=== PATIENT | male | born 1965 | race Caucasian/White ===

== ENCOUNTER 2022-10-19 19:01 | Emergency (ER) | payer OTHER, BC, SELFPAY ==
[2022-10-19 19:10] VITALS: BP 189/107; PULSE 73; RESP 24; TEMP 36.9; O2SAT 95; BMI 35.9
--- NOTE | 2022-10-19 19:15 | XR_ITS ---
The [address] [address] Patient Name: LESLIE COLLINS MRN: [id number] date: 1965 Sex: M Assigned Patient Location: ED.MAIN Current Patient Location: ER Accession/Order Number: [id number] Exam Date: 10/19/2022 19:10 Report Date: 10/19/2022 20:34 At the request of: SILVESTRE RODRIGUEZ Procedure: XR hand LT min 3V IMAGES REVIEWED: XR hand LT min 3V COMPARISON: None available. CLINICAL INDICATION: puncture wound FINDINGS/IMPRESSION: Acute intra-articular minimally displaced fracture of the base of the fourth distal phalanx. Otherwise the left hand appears intact. No dislocation. No radiopaque foreign bodies in the soft tissues. Mild-moderate degenerative change of the triscaphe joint, first CMC joint, and scattered interphalangeal joints. Electronically authenticated by: SEBAS CASTILLO Date: 10/19/2022 20:34
[2022-10-19] MEDS: HYDROCODONE/ACETAMINOPHEN 5-325 MG TABLET 1 TAB PO (20:04)
[2022-10-19] MEDS: ONDANSETRON 4 MG RAPDIS TABLET SL (20:04)
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
[2022-10-19] MEDS: LIDOCAINE HCL 1% PF 50 MG/5 ML VIAL 10 ML INJ (21:15)
[2022-10-19] MEDS: DOXYCYCLINE MONOHYDRATE 100 MG CAPSULE PO (21:33)
[2022-10-19 21:50] VITALS: BP 158/89
[2022-10-19 21:54] VITALS: BP 158/89; PULSE 87; RESP 16; O2SAT 97
--- NOTE | 2022-10-19 22:03 | PC.NURSE ---
splint applied to left hand 4th finger, johanne taped with 5th finger
== END 2022-10-19 21:54 | disposition home or self-care (01) ==
PROVIDERS: Emergency Provider Internal Medicine; PCP Family Medicine
DX: S62.634B Displaced fracture of distal phalanx of right ring finger, initial encounter for open fracture (principal); S61.412A Laceration without foreign body of left hand, initial encounter; W20.8XXA Other cause of strike by thrown, projected or falling object, initial encounter
CPT/HCPCS: 12001; 73130; 99283

== ENCOUNTER 2022-11-22 08:58 | Outpatient (OUT) | payer OTHER, BC, SELFPAY ==
--- NOTE | 2022-11-22 09:09 | XR_ITS ---
The [place] [id number] Patient Name: LESLIE COLLINS MRN: [id number] date: 1965 Sex: M Assigned Patient Location: RAD Current Patient Location: RAD Accession/Order Number: [id number] Exam Date: 11/22/2022 09:10 Report Date: 11/22/2022 12:15 At the request of: ELIZABETH Magaña APLING Procedure: XR finger LT min 2V PROCEDURE: XR finger LT min 2V HISTORY: Nondisplaced fracture of the distal phalanx left finger ; follow-up fourth digit distal phalanx fracture COMPARISON: XR hand left 10/19/2022 FINDINGS: BONES:Very minimally displaced fracture of the proximal posterior corner of the fourth digit distal phalanx, with intrahepatic extension. Slight widening of the fracture line suggesting movement or bone resorption as part of early healing process. No appreciable callus formation. SOFT TISSUES:Soft tissue swelling of fourth digit. EFFUSION:None visible. OTHER: Negative. XR/XR finger LT min 2V IMPRESSION: 1. Persistent fracture of fourth distal phalanx. Slight increased widening of the fracture line and lack of callus formation raises concern for movement at fracture site preventing healing. Electronically authenticated by: SILVANA LAKE Date: 11/22/2022 12:15
== END 2022-11-22 08:59 | disposition home or self-care (01) ==
PROVIDERS: PCP Family Medicine; Visit Provider Nurse Practitioner Family
DX: S62.665D Nondisplaced fracture of distal phalanx of left ring finger, subsequent encounter for fracture with routine healing (principal)
CPT/HCPCS: 73140

== ENCOUNTER 2022-12-06 15:01 | Outpatient (OUT) | payer OTHER, BC, SELFPAY ==
[2022-12-06] MEDS: VARICELLA-ZOSTER GE VAC,2 OF 2 0.5 ML VIAL IM (15:08)
== END 2022-12-06 15:02 | disposition home or self-care (01) ==
LOC: VACCLI 15:02
PROVIDERS: PCP Family Medicine; Visit Provider Family Medicine
DX: Z23 Encounter for immunization (principal)
CPT/HCPCS: 90471; 90750

== ENCOUNTER 2022-12-12 14:55 | Outpatient (RCR) | payer OTHER, BC, SELFPAY | END 2023-01-02 16:08 | disposition home or self-care (01) | LOC: OT 14:55 | PROVIDERS: PCP Family Medicine; Visit Provider Nurse Practitioner Family | DX: M79.645 Pain in left finger(s) (principal); M25.442 Effusion, left hand | CPT/HCPCS: 97110; 97165 ==

== ENCOUNTER 2023-02-07 07:38 | Outpatient (OUT) | payer OTHER, BC, SELFPAY ==
[2023-02-07] MEDS: VARICELLA-ZOSTER GE VAC,2 OF 2 0.5 ML VIAL IM (15:46)
== END 2023-02-07 07:39 | disposition home or self-care (01) ==
LOC: VACCLI 07:45
PROVIDERS: PCP Family Medicine; Visit Provider Family Medicine
DX: Z23 Encounter for immunization (principal)
CPT/HCPCS: 90471; 90750

== ENCOUNTER 2024-04-08 08:05 | Outpatient (OUT) | payer OTHER, BC, SELFPAY ==
[2024-04-08 09:38] LABS: Estimated Average Glucose 235 mg/dL; Glycohemoglobin A1C 9.8 % (4.5-6.2)
[2024-04-08 11:08] LABS: Prostate Specific Antigen Scrn 2.54 ng/mL (<=4.00)
== END 2024-04-08 08:06 | disposition home or self-care (01) ==
LOC: LAB 08:06
PROVIDERS: PCP Family Medicine; Visit Provider Family Medicine
DX: Z00.00 Encounter for general adult medical examination without abnormal findings (principal); Z12.5 Encounter for screening for malignant neoplasm of prostate; R73.09 Other abnormal glucose
CPT/HCPCS: 36415; 83036; G0103

== ENCOUNTER 2024-09-28 10:08 | Outpatient (OUT) | payer OTHER, BC, SELFPAY ==
--- OUTSIDE RECORDS SUMMARY | 2024-09-28 10:12 | XMS_ITS | CCD ---
Author Organization [facility] Care Team Providers Care Flexible Nanny Name Role Phone ANNALEE, DR TRUJILLO Admitting Unavailable HOY, DR TRUJILLO Attending Unavailable HOY, DR TRUJILLO Primary Care Unavailable GALLARDO, DR TONO Tejeda Consulting Unavailable HOY, DR TRUJILLO Admitting Unavailable HOY, DR TRUJILLO Attending Unavailable HOY, DR TRUJILLO Primary Care Unavailable HOY, DR TRUJILLO Consulting Unavailable Said, Tracy Consulting Unavailable ZEEMARIANO Consulting Unavailable DAVONY, DR TRUJILLO Primary Care Unavailable HOY, DR TRUJILLO Admitting Unavailable HOY, DR TRUJILLO Attending Unavailable HOY, DR TRUJILLO Consulting Unavailable HOY, DR TRUJILLO Admitting Unavailable HOY, DR TRUJILLO Attending Unavailable HOY, DR TRUJILLO Consulting Unavailable HOY, DR TRUJILLO Primary Care Unavailable HOY, DR TRUJILLO Admitting Unavailable HOY, DR TRUJILLO Attending Unavailable HOY, DR TRUJILLO Consulting Unavailable HOY, DR TRUJILLO Primary Care Unavailable ZIEBER, DR SILVANA Tejeda Consulting Unavailable HOY, DR TRUJILLO Admitting Unavailable HOY, DR TRUJILLO Attending Unavailable HOY, DR TRUJILLO Consulting Unavailable ANNALEE, DR TRUJILLO Primary Care Unavailable MAGGIE HUERTA Admitting Unavailable ANNALEE, DR TRUJILLO Primary Care Unavailable MAGGIE HUERTA Attending Unavailable MAGGIE HUERTA Consulting Unavailable Problems Active Problems Problem Classification Problem Date Documented Date Episodic/Chronic Diabetes mellitus without complication (1 source) Other abnormal glucose; Translations: [OTHER ABNORMAL GLUCOSE] Onset: 03-06-2022 Episodic Disorders of lipid metabolism (2 sources) Hyperlipidemia, unspecified; Translations: [Pure hypercholesterolemia, unspecified] Onset: 11-01-2021 Chronic Diverticulosis and diverticulitis (1 source) Diverticulitis of large intestine without perforation or abscess without bleeding; Translations: [DVTRCLI LG INT NO PERF/ABSC W/O BL] Onset: 11-01-2021 Chronic Osteoarthritis (1 source) Unspecified osteoarthritis, unspecified site; Translations: [UNSPECIFIED OSTEOARTHRITIS UNS SITE] Onset: 11-01-2021 Chronic Other aftercare (1 source) Other alf (current) drug therapy; Translations: [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] Onset: 03-06-2022 Episodic Other screening for suspected conditions (not mental disorders or infectious disease) (1 source) Encounter for screening for malignant neoplasm of prostate; Translations: [ENC SCREEN MALIG NEOPLASM PROSTATE] Onset: 03-06-2022 Episodic Residual codes; unclassified (1 source) Sleep apnea, unspecified; Translations: [SLEEP APNEA UNSPECIFIED] Onset: 11-01-2021 Chronic Unclassified (4 sources) CONTACT W/AND (SUSP) EXPOS COVID-19; Translations: [CONTACT W/AND (SUSP) EXPOS COVID-19] Onset: 05-17-2021 Past or Other Problems Problem Classification Problem Date Documented Da te Episodic/Chronic Abdominal pain (3 sources) Left lower quadrant pain; Translations: [LEFT LOWER QUADRANT PAIN] Onset: 10-26-2021 Episodic Immunizations and screening for infectious disease (4 sources) Encounter for immunization; Translations: [ENCOUNTER FOR IMMUNIZATION] Onset: 03-14-2021 Episodic Joint disorders and dislocations; trauma-related (1 source) Other tear of medial meniscus, current injury, right knee, initial encounter; Translations: [OTH TEAR MED MENSC CUR RT KNEE INIT] Onset: 09-26-2021 Episodic Other and unspecified benign neoplasm (1 source) Personal history of colonic polyps; Translations: [PERSONAL HISTORY OF COLONIC POLYPS] Onset: 11-01-2021 Episodic Sprains and strains (8 sources) Sprain of medial collateral ligament of right knee, initial encounter; Translations: [Sprain of medial collateral ligament of right knee, subsequent encounter] Onset: 09-19-2021 Episodic Unclassified (1 source) CONTACT W/AND (SUSP) EXPOS COVID-19; Translations: [CONTACT W/AND (SUSP) EXPOS COVID-19] Onset: 05-11-2021 Results Test Name Value Interpretation Reference Range Facility OCC BLD IMMUNO SCREENon - OCCULT BLOOD Negative Normal NEGATIVE [facility] Comment on above: Performed By: #### O BSCRN #### [facility] [address] [address] [address] Mitesh Francisco CBC AUTO DIFFon 02-27-2022 BASO # 0.0 103/ul Normal 0.0-0.1 [facility] Comment on above: Performed By: #### C BC #### [facility] [address] [place] [address] Dr. Mitesh Francisco Basophils/100 WBC (Bld) 0.4 % Normal 0.2-2.0 [facility] Comment on above: Performed By: #### C BC #### [facility] [address] [place] [address] Dr. Mitesh Francisco EO # 0.1 103/ul Normal 0.0-0.7 [facility] Comment on above: Performed By: #### C BC #### [facility] [address] [place] [address] Dr. Mitesh Francisco Eosinophils/100 WBC (Bld) 0.8 % Critically low 0.9-7.0 [facility] Comment on above: Performed By: #### C BC #### [facility] [address] [place] [address] Dr. Mitesh Francisco Erythrocyte distribution width (RBC) [Ratio] 12.6 % Normal 11.0-15.0 [facility] Comment on above: Performed By: #### C BC #### [facility] [address] [place] [address] Dr. Mitesh Francisco Hematocrit (Bld) [Volume fraction] 46.5 % Normal 42.0-54.0 [facility] Comment on above: Performed By: #### C BC #### [facility] [address] [place] [address] Dr. Mitesh Francisco Hemoglobin (Bld) [Mass/Vol] 16.1 g/dL Normal 14.0-18.0 [facility] Comment on above: Performed By: #### C BC #### [facility] [address] [place] [address] Dr. Mitesh Francisco IG # 0.02 10e3/ul Normal 0.00-0.03 [facility] Comment on above: Performed By: #### C BC #### [facility] [address] [place] [address] Dr. Mitesh Francisco IG % 0.3 % Normal 0.0-0.5 [facility] Comment on above: Performed By: #### C BC #### [facility] [address] [place] [address] Dr. Mitesh Francisco LYMPH # 1.5 103/ul Normal 1.2-3.8 [facility] Comment on above: Performed By: #### C BC #### [facility] [address] [place] [address] Dr. Mitesh Francisco Lymphocytes/100 WBC (Bld) 19.4 % Critically low 20.5-60.0 [facility] Comment on above: Performed By: #### C BC #### [facility] [address] [place] [address] Dr. Mitesh Francisco MANUAL DIFF REQ NO Normal [facility] Comment on above: Performed By: #### C BC #### [facility] [address] [place] [address] Dr. Mitesh Francisco MCH (RBC) [Entitic mass] 32.6 pg Normal 25.9-34.0 [facility] Comment on above: Performed By: #### C BC #### [facility] [address] [place] [address] Dr. Mitesh Francisco MCHC (RBC) [Mass/Vol] 34.6 g/dL Normal 29.9-35.2 [facility] Comment on above: Performed By: #### C BC #### [facility] [address] [place] [address] Dr. Mitesh Francisco MCV (RBC) [Entitic vol] 94.1 fL Critically high 80.0-94.0 [facility] Comment on above: Performed By: #### C BC #### [facility] [address] [place] [address] Dr. Mitesh Francisco MONO # 0.7 103/ul Normal 0.3-0.8 [facility] Comment on above: Performed By: #### C BC #### [facility] [address] [place] [address] Dr. Mitesh Francisco Monocytes/100 WBC (Bld) 9.1 % Normal 1.7-12.0 [facility] Comment on above: Performed By: #### C BC #### [facility] [address] [place] [address] Dr. Mitesh Francisco NEUT # 5.3 103/ul Normal 1.4-6.5 [facility] Comment on above: Performed By: #### C BC #### [facility] [address] [place] [address] Dr. Mitesh Francisco Neutrophils/100 WBC (Bld) 70.0 % Normal 43.0-75.0 [facility] Comment on above: Performed By: #### C BC #### [facility] [address] [place] [address] Dr. Mitesh Francisco Platelet mean volume (Bld) [Entitic vol] 11.1 fL Normal 9.5-13.5 [facility] Comment on above: Performed By: #### C BC #### [facility] [address] [place] [address] Dr. Mitesh Francisco PLT 142 103/ul Critically low 150-450 [facility] Comment on above: Performed By: #### C BC #### [facility] [address] [place] [address] Dr. Mitesh Francisco RBC 4.94 106/ul Normal 4.70-6.10 [facility] Comment on above: Performed By: #### C BC #### [facility] [address] [place] [address] Dr. Mitesh Francisco WBC 7.6 103/ul Normal 4.0-11.0 [facility] Comment on above: Performed By: #### C BC #### [facility] [address] [place] [address] Dr. Mitesh Francisco FREE T3on 02-27-2022 FREE T3 2.58 pg/mlL Normal 2.18-3.98 [facility] Comment on above: Performed By: #### C BC #### [facility] [address] [place] [address] Dr. Mitesh Francisco GLYCOHEMOGLOBIN A1Con 2021 ADA RECOMMENDATION SEE BELOW Normal [facility] Comment on above: Result Comment: ADA RECOMMENDED LIMIT 4.0 - 6.0 ADA THERAPEUTIC TARGET < 7.0 ACTION SUGGESTED > 7.0 Performed By: #### A 1C #### [facility] [address] [place] [address] Dr. Mitesh Francisco Glucose [Mass/Vol] 123 mg/dL Normal [facility] Comment on above: Performed By: #### A 1C #### [facility] [address] [place] [address] Dr. Mitesh Francisco HbA1c (Bld) [Mass fraction] 5.9 % Normal 4.5-6.2 [facility] Comment on above: Performed By: #### A 1C #### [facility] [address] [place] [address] Dr. Mitesh Francisco LIPID PROFILEon 02-27-2022 CHOL-HDL RATIO NORM SEE BELOW Normal [facility] Comment on above: Result Comment: 3.3 - 4.4 LOW RISK 4.4 - 7.1 AVERAGE RISK 7.1 - 11.0 MODERATE RISK >11.0 HIGH RISK Performed By: #### C BC #### [facility] [address] [place] [address] Dr. Mitesh Francisco Cholesterol [Mass/Vol] 183 mg/dL Normal <=200 [facility] Comment on above: Performed By: #### C BC #### [facility] [address] [address] [address] Mitesh Francisco Cholesterol in HDL [Mass/Vol] 40 mg/dL Normal 40-60 [facility] Comment on above: Performed By: #### C BC #### [facility] [address] [address] [address] Mitesh Francisco Cholesterol in LDL [Mass/Vol] 113.8 mg/dL Normal [facility] Comment on above: Performed By: #### C BC #### [facility] [address] [place] [address] Dr. Mitesh Francisco Cholesterol.total/C holesterol in HDL [Mass ratio] 4.6 {ratio} Normal [facility] Comment on above: Performed By: #### C BC #### [facility] [address] [address] [address] Mitesh Francisco HDL NORMAL > or = 60 mg/dl - LO W CARDIOVASCULAR RISK <40 mg/dl - HIGH CARDIOVASCULAR RISK Normal [facility] Comment on above: Performed By: #### C BC #### [facility] [address] [address] [address] Mitesh Francisco LDL CALC NORMAL SEE BELOW Normal [facility] Comment on above: Result Comment: <100 mg/dl OPTIMAL 100 - 129 mg/dl NEAR OR ABOVE OPTIMAL 130 - 159 mg/dl BORDERLINE HIGH 160 - 189 mg/dl HIGH >190 mg/dl VERY HIGH Performed By: #### C BC #### [facility] [address] [place] [address] Dr. Mitesh Francisco Triglyceride [Mass/Vol] 146 mg/dL Normal <=150 [facility] Comment on above: Performed By: #### C BC #### [facility] [address] [place] [address] Dr. Mitesh Francisco VLDL CALC 29.2 mg/dL Normal [facility] Comment on above: Performed By: #### C BC #### [facility] [address] [place] [address] Dr. Mitesh Francisco PROF 14(COMP METB)on 022 Albumin [Mass/Vol] 3.9 g/dL Normal 3.4-5.0 [facility] Comment on above: Performed By: #### C BC #### [facility] [address] [place] [address] Dr. Mitesh Francisco Albumin/Globulin [Mass ratio] 1.1 {ratio} Normal [facility] Comment on above: Performed By: #### C BC #### [facility] [address] [place] [address] Dr. Mitesh Francisco ALP [Catalytic activity/Vol] 56 U/L Normal 46-116 [facility] Comment on above: Performed By: #### C BC #### [facility] [address] [place] [address] Dr. Mitesh Francisco ALT [Catalytic activity/Vol] 72 U/L Critically high 16-63 [facility] Comment on above: Performed By: #### C BC #### [facility] [address] [place] [address] Dr. Mitesh Francisco Anion gap [Moles/Vol] 8.5 mmol/L Normal [facility] Comment on above: Performed By: #### C BC #### [facility] [address] [address] [address] Mitesh Francisco AST [Catalytic activity/Vol] 22 U/L Normal 15-37 [facility] Comment on above: Performed By: #### C BC #### [facility] [address] [address] [address] Mitesh Francisco Bilirubin [Mass/Vol] 0.7 mg/dL Normal 0.2-1.0 [facility] Comment on above: Performed By: #### C BC #### [facility] [address] [place] [address] Dr. Mitesh Francisco Calcium [Mass/Vol] 9.1 mg/dL Normal 8.5-10.1 [facility] Comment on above: Performed By: #### C BC #### [facility] [address] [place] [address] Dr. Mitesh Francisco Chloride [Moles/Vol] 103 mmol/L Normal 98-107 [facility] Comment on above: Performed By: #### C BC #### [facility] [address] [place] [address] Dr. Mitesh Francisco CO2 [Moles/Vol] 28.8 mmol/L Normal 21.0-32.0 [facility] Comment on above: Performed By: #### C BC #### [facility] [address] [place] [address] Dr. Mitesh Francisco Creatinine [Mass/Vol] 1.05 mg/dL Normal 0.70-1.30 [facility] Comment on above: Performed By: #### C BC #### [facility] [address] [place] [address] Dr. Mitesh Francisco EGFR-AF CONGOLESE >60 Normal >=60 [facility] Comment on above: Performed By: #### C BC #### [facility] [address] [address] [address] Mitesh Francisco EGFR-NON AF CONGOLESE >60 Normal >=60 [facility] Comment on above: Performed By: #### C BC #### [facility] [address] [address] [address] Mitesh Francisco Globulin (S) [Mass/Vol] 3.5 g/dL Normal [facility] Comment on above: Performed By: #### C BC #### [facility] [address] [address] [address] Mitesh Francisco Glucose [Mass/Vol] 115 mg/dL Critically high 74-106 [facility] Comment on above: Performed By: #### C BC #### [facility] [address] [place] [address] Dr. Mitesh Francisco Potassium [Moles/Vol] 4.3 mmol/L Normal 3.5-5.1 [facility] Comment on above: Performed By: #### C BC #### [facility] [address] [place] [address] Dr. Mitesh Francisco Protein [Mass/Vol] 7.4 g/dL Normal 6.4-8.2 [facility] Comment on above: Performed By: #### C BC #### [facility] [address] [place] [address] Dr. Mitesh Francisco Sodium [Moles/Vol] 136 mmol/L Normal 136-145 [facility] Comment on above: Performed By: #### C BC #### [facility] [address] [address] [address] Mitesh Francisco Urea nitrogen [Mass/Vol] 15.0 mg/dL Normal 7.0-18.0 [facility] Comment on above: Performed By: #### C BC #### [facility] [address] [place] [address] Dr. Mitesh Francisco Urea nitrogen/Creatinine [Mass ratio] 14.3 mg/mg Normal [facility] Comment on above: Performed By: #### C BC #### [facility] [address] [place], [place] [address] Dr. Mitesh Francisco T4on 02-27-2022 T4 [Mass/Vol] 4.70 ug/dL Normal 4.50-12.10 [facility] Comment on above: Performed By: #### C BC #### [facility] [address] [place], [place] [address] Dr. Mitesh Francisco TSHon 02-27-2022 TSH 2.979 uIU/mL Normal 0.358-3.740 [facility] Comment on above: Performed By: #### C BC #### [facility] [address] [place], [place] [id number] Dr. Mitesh Francisco Consent Formson 12-21-2021 Consent Forms [id number] TGTIFF [facility] Coding Summaryon 12-20-2021 Coding Summary HTMLBase 64 HlgkdxumVFf1mFq+PGhlYWQ +GE0VXYFiG23qmGPmoE3XG4 vQII5MITYRTAZNCV3NGW9ky WX9KIcrM8HyvnUv JmzowQViBA64QRi6KIC4aIl yBTsmoT0atOQkY1s6MvFeGH 81pT05GEmxDHPsUbL2QcFef jsgbWFy W2cwViAeuRHnXci+PHRhYmx lIHdpZHRoPScxMDAlJyBzdH lsSP2yHo6iSNIgEHMygHjnm HNlOiBj f9hdASUuIHqnHZ6zwQziP7P rcPV9HOZuu2z5By35jEQ+PH ZqKDX3oPayMUori698EtDez 1ygULR6 wLBoEVrrXET5J27nn5P4JNQ vETTqVLO5jYV0mZ5hcTwwae kuK1CiiLHuWvR0EQI0eALpa K9vzBmr iwkqhN1dVay+Z30BUD4IYYB KKN7WLtz5V0NmIlgspDQ+PC 06CXCkIV59aJFpdXAhx5jyy Dq8FtPi UJFsRJJ4gTfvUYmgc0FoRLP zA83crOZwb5K5YXCwdXxmgN OfNiIncQP4xO8sPIkgwzvut 2hvdzsn Ehvgq6dzel93iV91M73oZLs aHRBpCMB1UVBeOMBmqCbuuv 4pvV6xYw2+NQlar8slv8zdl Dm4JxNu ILZyrrItrCigYKI3u1LoXl8 7X3BmdAuba6UwLxo0mp99qM Mgv0G2jAQ6QJevATJhlN3hJ WxlZnQ6 NQOvXmPraI67uNCdTOrqJj8 fpHjhuFcoGA2xESZorzeuJI YxmI9kPDLshOOhjJddOW4eJ TBpbjtm a000SnRkANW1JHXowCVcN1R yyU1kRzGhBHXuEOTkI7CueZ JsMVuwA655XTadEoK4DBYlh tOuH3Rk BGMxjKrzQyG8g4U7Kj6Ue1T fcvuzLZC7KIcvARB3ZcPsWa RyHtL5W1KyLed2LVZwdBfcP W6pC9Dq TWPmzryydgndhIE8PMRqWMN moN76pYWaPJxgAl4fn7V1w3 10CBIcZJHyiP75Kr5veDqgS TBwdCBU iV5gjgijk0ldziolKgUbYAX hTXy5CJl4EJBuaZfvFdUhNT P4KcP2NAV7bYNeyA2zeKusi ofsaE8f Oyc+G65xgP1aMPF4CEY1guo qKVWopxCaHA34LQ61D7PvRw wvdGFibGU+PGRpdiBzdHlsZ V8zZpQv n6yqi5ZmFQcuY7DsZTNtJZx mQdf4VSBuLAV1hZO9wB0wGS ZzGJhtz4K9hEW1J3KfhwHyc r2wc9yp SWSiDBjdU15hhZNoy9L9JUL hcMB4AJUsbOboZjZpyS39Ce c+VTJswWewg3RlYtget1rlc 9jjqFj4 BaEeTBKkttKlvGysKUG5y1A iVl86X49kHIcyNQUnEDMhBS VhKHNvhYjdko7kkO1lSa4+P GNvbCB3 vNS4cL6yBEKmMbI9RNiwM33 8SdFkhOEnWcstl3leu0gtuF j0OgGyANOikvCdyUvmVHW7h 1ZaTq58 H11uBFaiWQVlCPJhUOUlLKF qyYnwkq3hjN9fAq6+PC9jb2 jbxu88qE13cSQ+WCFdLPZ5c WxlPSdw PKWqmE7zNHqvLhH3UXFcLbP crI18aDAyZNeyVq1ocYubkC liJA2wPTNfzbmhe878JrLqx 2xkIDEw cVTfFEbiPET1I70rc5O9PSQ dJZHyGIS3pQW1aS5ybVlzek ogbGVmdDsgdmVydGljYWwtY PbuZ991 IHRvcDsnPlBhdGllbnQgTmF nSTz4S1EbRna0RPBkyUgeRV 0cyBExOObsBu5dhFlzeAzdP Q7vAPAc edejg729UdZdn8wiLSLuuVW wMRdeFVV5H46jq6K2FFKxPK CeAYD4jDK0sX5kzFlxdxxzk GVmdDsg ydVdgQvgIHfqHKxdR357GAL kaIszPwJpvpJsPGQyvAZ0FG 17CX23qWWqh7J4qVI8O7QmV GRpbmct ngtqpQF0GPEhMHUccD86Qd0 slPsuCm1wEPCvMTO7IGWtpQ QaV5WsmO9yCgKdNDFbYKPsM 3RleHQt CKrlM499PJtdSuD2BIBjwbS vE9WcFUSasKnbVpP8j5O6Tn 5EF6E3UI40DK57qJQco0R0u YL5E0Td GJTpbvastzowqMQ7XOFpPQH wgM80Xb9tcQidHp8oGHToIJ K8QWPhpMZeZ0XbjZ1dWuZcV DAwMDAw Y6TzqJNlHPgaD354FDjwVyX 9YGImikKsX7RhKVRciUegFd O4x9N8Cw5RNZq3ZN53QZ08k ICym7A6 nIL0V6VoZFHrogzyyflhiLJ 6LVStVJLajU55Vx1ryRjeQa 0kBPFwNSP3CEQrxVYrX9Syz E2bYzLv RBPdMOLaL8LalLHrCXpjY73 0ACkvTmJ6XKVpyyYmC4HeZC HdhZpsEmO6l0W8Nw5ODIUgQ B67RRB4 nUS7AK22EG14I9IvGvbceIR ibGU+PHRhYmxlIHdpZHRoPS szTDDxBbHdkJzxRZ6oSf8kW GVyLWNv iCntiALdRlWus2ytYTNvTGl jAC3baLqtU7DkcBM8KZTvy4 m4Lw19Q17xF7YpqOF+PGNvb JO1mSW8 hK1sScTyXgU8YGxvB006OxK sgLPeJabfa3qhe4isdJp0Gs G9JPBocxEkxYjbSOG1m9XzT f64C19d IHdpZHRoPSIxNSUiIHZhbGl ciu5dtS1lBh6+AJKshJR7lN B0mA5yMvZrIxJ9KCrlA543M nRvcCIv Qiciu0yaf5rdrYy4BpDnGPU cyyDuhMbmYQH3x8XfEw45M6 AloDmno7ZbLyy3ns15pVFgb 0T7iYO3 J5WfYKKdgrhxmYLpaRdjPL0 cBVTqydveGURlkY7fIBPuZ9 v9UvNgKuV2ERniV1HskkT3I DEwcHQg ROhoLBW7T34tm3D2CTCjPXA jUXD7oMC0zD5dzCagzecxcN VmdDsgdmVydGljYWwtYWxpZ 246IHRv uNfiHYVpcU3oLPDmvYBsbNt hGW2zQDCzkdcaEl9VK1bGXy cJOAVYSOAAHOrDJTBANP02Q Z13aJOb m5G1kLY0E7MnRNOaaxllrjm kjZZ4CWVxBODtlW00vYArLK uaSa6lv3B3a121TYRmCTMij X98Wt4n vXpwGFItcTFYmF8savzlc0i kvcenUoUuIHYjLOz1VKz0MN UvsYlhXdNcGJV4WeD5KYK6j NByzR4n fSyhiytokC5tUwb+MDEvMTU mMVf6EAybvFV+BCZeOJV8fI utAVgeNVBunQ3mMQDsL5d1X iAwLjA1 IEkzO7YfJVVazsikGs28vB9 vYaVrTmP7TXyzL0SmphK6VH OqpLZeIHkuBEX6N50jv1M9X CMwMDAw LEN4kXB9cC3qnYacjjsrqQE mdDsgdmVydGljYWwtYWxpZ2 47MDXwzTjeOoJ2PSwiTQIxV F24BJ26 pGAms7S3jXF4I4InOKSrslb ltjuzfEF8YZYrLTOszC89nO ZuJRauIk0nb7P5v976GGIfU DUwaW47 Cc5uzDkuUERxnLSUqF3xexm vm4vdvtlmEuIzZIKePUx7RS b5XMWxcGjjWsWcZAB5QzE5W PN0xQKw vZ9ctLcixgpsdS2oIjs+TUF MRTwvdGQ+FMNoIQI9fTheME paVDOcsX2jMLKtP7y9YjMoS yX9GWug E0YkMAUoidqrKz06pI0hVeX iIcB4PCdjZ8BkxaR9OTOntN NmJKlcJMU8P43ni1S1TVKeL DAwMDA7 kYE7eQ1nbEptszdnhLUgfWe xbtCbeSkcGZfdUTlcC618CO PsrYuvXeHwkKCTvDBbNAH4E A31GE95 N3UrIxlbeBKytQB+PHRhYmx lIHdpZHRoPScxMDAlJyBzdH ttAQ0eIl3mZHEkBXBkxZxqg HNlOiBj c9bjHLFrJXsqNJ0iwIrfE1K ebJL6CKYwg3r7Dk01F20uL9 JvdXA+VRNmpPF5pET0eP9bX zAlIiB2 QJsdU041YmKsjPRgDjmdv9c cl8dvtKg4PpHdJUChpaLluQ dpFGZ9q3AxOi80W80aZAhhT HRoPSIy CPScFLWkuJgwpn1skX5lRq4 +LGCpuCC7xJW9oB9tSmHgQu O3MDoyR264AnDzbEPeNjldP 63dE6An dXA+ZQBfOhx1STJrcFesHW1 dlIFmEPtnNj7mSVA9JyDpWh ZdHEthU9MxEEVcniuyggdlz FM8RTMm IPSucX71Qy3qiXqrEp7qCWQ oOXW3KGSjmBGaR7DzsO9xFe NnOIPxCAJsE7IipILoEMnuA 246IGxl PiU3INMlhxKhA4EsTJKwkKv kIiM5i9X7Qv8VmXuxrPAfLV 8oSnOtJIl1S4GmKka4TDSez KmsBX5q pVHoWShxIi3qqDlnxAplSC1 zXDJtgamxa258ExQux2kuPO UkcMDxCMxqRAD3P21wg1Q0D CMwMDAw GUI4mZJ0vW0giGltvwvnkBM mdDsgdmVydGljYWwtYWxpZ2 70EKQrmEdwPbJEQde7F5IdI xx1ETOb dRkaEP7dlNIrVIuzZi9okGk etDkaID8gPBVewbysy198Vb Lpw5ccMDPprQKgSOrnHIP4F 67hi6H7 VSWfUOIzAVF6cIG7iC2zsKk nbjogbGVmdDsgdmVydGljYW fnQFkwL722UPTxpYweMk9OV uj0S4Bx Uqb5EOBivMbgLP7miOHnOGu zAb5sdGfmwNxjUH0mAISxud vxx418RyJdq5ydPUNnzPFrP GltZXM7 R00kl2I8EPFjACVlTDW6lHV 1fB4maYdwchnowXLatBgonu RuiVclUSkaJHsoF784YJIhl DsnPlBh eWVyOjwvdGQ+AQ78qg46Y1V cPkfbUsz2IZYqGTV0tVE9tZ 8gYRFmJAgqa4E2yLO2N2Wmv kLviz1k b2x (more content not included)... [facility] Consent Formson 12-19-2021 Consent Forms [id number]#1.00O TGTIFF [facility] Discharge Instructionson Discharge Instructions [id number]#1.00O TGTIFF [facility] Telemetry Stripson 2 Telemetry Strips [id number]#1.00O TGTIFF [facility] Anesthesia Noteon 12-18-2021 Anesthesia Note Patient: Tarsha COLLINS Age: 56 years Sex: MALE : 1965 Associated Diagnoses: None Author: Jose Scott DO Postoperative Information Post Operative Note: Post Anesthesia Care Unit. Anesthetic utilized: General. Physical Examination VS/Measurements VSS. See nursing flowsheet for vital sign measurements. General: No acute distress. Respiratory: Respirations are non-labored. Cardiovascular: Stable hemodynamics.. Neurologic: Alert, Oriented. Review / Management Condition: Stable. Assessment Anesthetic outcome No anesthetic complications noted. Adequate pain relief. Patient either has a diagnosis of or is at risk of [place]. Potential risks and mitigating factors were discussed with the patient who expresses understanding.. Patient advised to follow-up with PCP regarding HTN.. No Complaint of nausea and vomiting. Plan Transfer/ Discharge: Patient can be discharged from PACU when criteria met. Condition stable. [Electronically Signed on: 12/18/2021 17:18 EDT] Jose Scott DO [Verified on: 12/18/2021 17:18 EDT] Jose Scott DO [facility] Anesthesia Note Patient: Tarsha COLLINS Age: 56 years Sex: MALE : 1965 Associated Diagnoses: None Author: Lex Dawkins MD Preoperative Information Anesthesia history: Family history. Patient history: No prior anesthesia problems. Review of Systems Constitutional: Negative. Cardiovascular: No Chest Pain. No SOB. Health Status Allergies: Allergic Reactions (All) No Known Medication Allergies Current medications: Home Medications (4) Active diclofenac sodium 75 mg oral delayed release tablet 75 mg = 1 tab(s), PO, BID Glucosamine Chondroitin oral capsule 1 tab(s), PO, Daily lovastatin 10 mg oral tablet 10 mg = 1 tab(s), PO, Daily Zetia 10 mg oral tablet 10 mg = 1 tab(s), PO, Daily Problem list (past medical history): All Problems Diverticulitis / SNOMED CT 607625272 / Confirmed Hx of gastroesophageal reflux (GERD) / SNOMED CT 2822933132 / Confirmed Apnea, sleep / SNOMED CT 982978157 / Confirmed Histories Family History: No family history items have been selected or recorded. Procedure history: Cataract ([id number]). Comments: 12/05/2021 8:08 Caren Cortez RN right Ocular ([id number]). Comments: 12/05/2021 8:07 Caren Cortez RN repair History of repair of inguinal hernia ([id number]). Comments: 12/05/2021 8:08 Caren Cortez RN right Social History Electronic Cigarette/Vaping Assessment Electronic Cigarette Use: Never. Alcohol Assessment Use: Current. Wine, Liquor, 1-2 times per week Tobacco Assessment Never tobacco user Tobacco Use:. Substance Abuse Assessment Substance use: Never. . Social & Psychosocial Habits Alcohol 12/05/2021 Alcohol Use: Current Type: Liquor, Wine Frequency: 1-2 times per week Substance Abuse 12/05/2021 Substance use: Never Tobacco 12/05/2021 Smoking tobacco use: Never tobacco user Electronic Cigarette/Vaping 12/05/2021 Electronic Cigarette Use: Never . Physical Examination Pain assessment: Self-reports no pain. General: Alert and oriented, No acute distress. Airway: Mallampati classification: III (soft palate, base of uvula visible). Temporomandibular joint mobility: Good. Mouth: Within normal limits. HENT: Normocephalic. Respiratory: Lungs are clear to auscultation. Cardiovascular: Regular rhythm. Neurologic: Alert, Oriented. Review / Management Laboratory Results Plan [place] [employer]#(ASA) physical status classification: Class II. Anesthetic Preoperative Plan Anesthesia: General. . Anesthetic plan, risks, benefits, and alternatives discussed with the patient and/or family. Patient verbalized understanding. Informed consent was given. Anesthetic technique: General anesthesia. [Electronically Signed on: 12/18/2021 15:51 EDT] Lex Dawkins MD [Verified on: 12/18/2021 15:51 EDT] Lex Dawkins MD [facility] Coding Summaryon 12-18-2021 Coding Summary HTMLBase 64 KzzwktsjAQe7mZq+PGhlYWQ +QG6WHXZuZ39usXTtqT9HQ3 xSAS9SQLITNXDBKH6MUJ5rg YS5NWinI7NslgNg MqmkfTWkXL46TSx7PUQ7tUh cUGlrrU7osCIwK5v9NpHhBH 51qY08FPwsAIBdBaT5LeZct jsgbWFy V7mlIiOiyNQuQcc+PHRhYmx lIHdpZHRoPScxMDAlJyBzdH fdFO2sSc0hFJMuIUKdyLjno HNlOiBj m7apDZHbREvxCL8iqJpcR6E gjXR2PYJde4m3Xe55kVN+PH WyIHM8mZnfCTvdn406BnYwq 9ytLKL7 uHYmQJtkPTJ1V79qt9H0JMQ vMUUsRDH3pVY1jX1ioWlbmc yrF2NbzXQrAmW3FAC3sPOgc P2jcGtg laywcP3tBci+G07PGV2TCIX OYR8ZNzw2F4DxXbgajBL+PC 97PNTfMV42uCTyhUChm8uek Ab6SpIv BXFqSAT3gGinLLmmb1IzDJK cC00ayRZhs3J3IVBgaBoooQ AqJsKezSC5zP1nUKvckdhzp 2hvdzsn Baeyi0sybj94iD30X64iHYr qFSLhSHE9AHFtNTCmkDjycu 4caS0vIz0+YFgrl7lqy2ztd Jh9BwXw HRWgobYqyAyhQOM3i0OsCz9 4V7HsiGkvy7KfRou0gw06oX Qmb5J4uGU1QBixXRQsrV3sO WxlZnQ6 DPPnRkEhzP15tIVzCSxqFw6 crSnvxZzxZB3kCNCicvtoNM ZczV2mEQZrkGBmnMcyDM9hY TBpbjtm b322VcEmGPG3YXYelALyB4A mgP2aVlNfQOFcAUBwP8FzmH VyLPuwG644QZacBbA3USVuk zKiJ6Kn NTIxlLmvBfK3d1I8Cx8Zv3L gzmdlNVM4KJxgOVM9XpU4Lw IjNpE6Q9NcFhp6SUPhsQbbH W7uC4Ys BNPfcqtythjmcCH6UJNeAOM fnC18sFIaTZmbMg2uf7J0l6 96XFZdXYKiwG92Km4rnNjuE TBwdCBU sU1tiavur0jnzyjgUkIuFBR rGZh9BWw0XVHxwCckJpBxXU X8RpQ6SOZ7zLTydW0mpYryc ekvaW1d Oyc+H00dmX2fUPZ1WPG6dxr gSGSpihHvXA89GI06L2AiUq wvdGFibGU+PGRpdiBzdHlsZ W8vJySb w5ctk9EcJAneJ0LiOUJtYYt kOhr5QFUmVVD3lAI5cR7eOV OoNShtm4Y4mKI4P2ZwygBzb g1hj2bo GKHwCVbxD93kxAPwa2S1BIC yeGI7LLGgzRinEyWcoJ50Vq c+LKIduGewb8BtKbcif5cuo 6amuLc7 CgRrQONrnbWaqXliNDX5u1S sEz76O61lRQoeQLYmZIXePJ GgAXCmoHbdnz2bvM7fHm0+P GNvbCB3 nBW3eT0nQCHhVkO3GShtI84 1BbPdmDUkWlcwc7jkk6dtiG u0FaSiGWJkesQdwTrwEWY4s 6NhQm63 I74bQShvFVXtYQReIXZhFKZ kcZqvan5anJ5sQr0+PC9jb2 twhy64zD62oQV+VOExZUJ4a WxlPSdw MLMuyM0aWBdbHtW7VHFqCnV jtX15qIReUQvnLn3vcWzxqF gfKL9lWQKxmzpfs118UiCaz 2xkIDEw sTXbSAhmNUD3W73ey9X4MXA gNWWkZLU1aHP4kV8xzFrcbq ogbGVmdDsgdmVydGljYWwtY SsfC895 IHRvcDsnPlBhdGllbnQgTmF vZRw9T6AyVdv0HNSbpTtiNU 8eaCYwQMhgPh6mpVljwMonR E3oJNAu fszvg262HpKaj3tpQZRhqGR vEZsrWDH9M16gy0M5JBTnFI KpMGX8nQL5mV6wzPjcodbor GVmdDsg clIawMfwPNsjDVpmL097YZT awGzyFpBwicShYAQtgMT4XO 02WO09oHAjd8X7qCJ9D9LxV GRpbmct qztjvHT1VJQwLIZjrH17Db0 ulRflTv5eUJIqCXZ3FPSgxO RkJ0RgdF7wPuBaYGNnXVDwP 3RleHQt CVriX964PXfhUyR5KCTqvxL jY0GtERXqeBccEwN7y5D2Dq 1WS5D7EC95BC70hXGyf0F1o SJ1O3Lt ZNLvegehzkbetPH2FGKkLKU sxF55Gn5lyTgbIs3eCYXxKN L8ZCVmoUPiW0VlgE2dEjOyF DAwMDAw Y8RdtDFdYEfiM125HMqmOaM 1OSYzxhRxE2YiMBDcsBgnGx L3n0O9Ls9XXWl0HZ08KB13i WIqe4B3 vTR9Y5IwWWPxjgihniwrtQD 7TVXzOAWrwZ48Il7okXszRq 0aZUJrVCF8CTOinCFjK0Hgt B3wWxJm DLKqZGUhV0OrvLCmSYlmA18 7ZOcpFcY9NRNmdfWnJ3QlSF AoaWynOgH6m0M2Yt8SFRHwO J18UWU7 fOA5KG98CV65W7UrHwdqvHA ibGU+PHRhYmxlIHdpZHRoPS tpALUqSkNhyDxbGU8mTi1rY GVyLWNv jUhtiHRtFpGwm9rzYXVrALh bPB0quUisU6AjsYF7IHLai2 g4Mr28S46tZ7DbqWO+PGNvb PV1tZB4 kB7yAvAvUdQ4TEqoT890FcZ hdLSfFqnak3xzt0dqpOf6Ku Z0GSYuamFntOktJAM0f1AoU f48K49s IHdpZHRoPSIxNSUiIHZhbGl ivm9ibN8uPf8+YWExaPV2iI A0tZ7gKtGaWfT7WNxdN779Y nRvcCIv Onwrw0qzo4cgfPf0VfHsUIP zuoUrvSbjFEI7h5NjXr32I7 RkaRtzw7RwWco4ts53yGDdp 8C5rTX6 U5EjLLXzgldjvYIjnZkmEN6 tMATnyoozMVDolB0cZNNrK9 b5QnHhTuW4MLwtU7KbosL3D DEwcHQg EEooVEM0F50ri9F8XIEzKON nJVT2qBW8nF7kiThtnxxshZ VmdDsgdmVydGljYWwtYWxpZ 246IHRv nIjjYGYbqT7yWDNjyGAddVk tTE7iIJBswfraBj9VZ5dLSz eQNOZRHEXGUGtUPCDFSE72D I84pIFa b5A9vKS9S5OgCISljmtywel dzTL3BBVfNMBssM68zRVwFP fiUi6km2Q6x921YARyKEXfi M79Om0x kJmyVJRfkVFLeJ3aotrcb8r wuotoHsLjMIOeXOk6VHo2DQ LgeIqsOyXtJCT4YgG3WMB4b JAelN3a lXhgemgdoC7pMzu+MDEvMTU zDJu0XFlqsOK+OBReNEI5zC fdJEsdYPOieB4oRGTlJ5e5W iAwLjA1 UKqqL7DqPZUosqxfDw79bQ0 nDqEuNeU5NJypI2XqknF0DP FbcCSnEZncWEZ8H17ea2M8G CMwMDAw NTR6qQY3vG9orCwuqqigpPH mdDsgdmVydGljYWwtYWxpZ2 23JGFpcMgyLnM7BGphKJBvC K56HK51 pCScg9P5dKK7P9EyABQmrvl fgaruxLR3RLNzNGMnmS40mI TlHFegUt4to3D6d834QVPzD DUwaW47 Jk1qpOspHCXitETJmF0vmwc vp1ekadppXlDdVZNxNTo3MO c7IZNxpQrhNvLuOSJ4OxV8H WK2eHVy pN8zlIyucyzptT2xAdb+TUF MRTwvdGQ+GSHkGSN2nGaeDD qbMCHecW5xIJGfF1j5WzKwP uD0DXmu S4OeSBHgkuqgKr62pO7wQlO zDvL2FPivZ2VmbkO7NKOygO HyOTgbCNB8C42rh7N7LYZcB DAwMDA7 eOA9mK6ymAzqjmrxuTWsuGj rfpEfiAbsWXdjSEuiJ714LQ BchObeOz5VIB58WH89C6CtW jwvdGFi bGU+PHRhYmxlIHdpZHRoPSc fLQClHpDdoImcAB9hJp0zHI XmKJPsjJnhhDKqIyJrc3oaR XBzZTsg NJ1tcTntZ5GjbKY7KWOtz9u 8Ze76Y79xT3ZpzQG+PGNvbC E8dXI6zV8nYxFjBhD8NYgwA 249InRv yZOlMvhvj8dww1womAv3LwQ xHODhkeInrGfrBRS3r3HwAx 17B44sBOnaVOUpIGOtSSSgV HZhbGln qx1dlG0pAi5+SLWcmSP5dBI 0lF0lMhKqXiO3SUvvO746Ng EiqOZjEqgbN36pU3OjiAL+P HRyPjx0 FRZdxPglHU6ihLMuNEbxIl5 hOJU8MqJoVsQkOXncJ5BaWT GuihldlmjzsSS1WRJhVMEzu V57Js2x xUsgWj4gUGBkMEI8JWEneAQ dY9RsdE7zCgSbQWOuICItI9 ZwvLCoQJlhV170ZRkpEbW7F HZlcnRp N1LmPQEiyVdqYtY7n5G8Ob9 RoJoqbZQkSA5rZzUjCGy0U0 TkPec0AHDupAkwSL1grVZqV SlaNw4j xJkztRupVM0kNYMxpjdym04 8QjYon4ydDBKbjXXkMXhxCK G1Q19jq0K1LOAmJJFhPBV8h EY2nR3x bGlnbjogbGVmdDsgdmVydGl zJRsmPUzxD709HPLknBdpVe XFMvc8P5ZnKil1TWRvcXhgO U7niYYx MGghId8fjJtuoXhyAL4vSPP ltjnai386JtJjf3akPJVtoX TjFUwzRIM7U81xb6O0YJAnL DAwMDA7 bVW8mL3hsEyfkaxafJLykSa dblNqeUyiEEqaDBxwA395ZJ FzpGacVc8ZCce7R5HkVnn1J CBzdHls CR3poJVcFVgfMy5wtDjxiMc iOM3tRMDljaqsr536CyXsr1 srSXLawMHvYLjvHKY1M47jq 5Y5ZMNh WUGfJAU4iEW8aY0ivBmroti gbGVmdDsgdmVydGljYWwtYW msP245VAGgtVcqKcInmNQhK jwvdGQ+ KI46fu69R9TtDwlrHse8EIS cWHY1fEE8yY4sFIQuHIoqp4 V0dBX2A7KwifQtjv0zn5zgF XBzZTog Y29 (more content not included)... Normal [facility] Inpatient Patient Summaryon 12-18-2021 Inpatient Patient Summary [address] [address] Patient Discharge Instructions Name: LESLIE COLLINS : 1965 Patient Address: [address] [place] [id number] Primary Care Provider: Name: RONNIE MANTILLA After you are discharged if you find you have any questions, please, call [phone] ext [phone] to speak to a nurse. Discharge Diagnosis: Tear of meniscus of right knee as current injury Prescription Information: If you have been given a prescription for narcotics, seek immediate medical attention if you have any difficulty breathing or any sudden status changes such as confusion and sleepiness. If you or anyone you know is experiencing suicidal thoughts, mental health, alcohol and/or drug addiction problems; contact the [facility] 03/12 Crisis Hotline -Text 4HLFP lv 932676. If you received any narcotics, sedation, or any other medication that causes drowsiness for the next 24 hours, unless otherwise directed: ? Do not drive a car. ? Do not operate machinery such as power tools, lawn mowers, drills, sewing machines, or stoves ? Avoid alcoholic beverages and drugs for allergies, nerves, or sleep ? Do not make important personal or business decisions or sign any legal documents [facility] would like to thank you for allowing us to assist you with your healthcare needs. The following includes patient education materials and information regarding your injury/illness. KARINACAROLINE MAYN OKSANA has been given the following list of follow-up instructions, prescriptions, and patient education materials: Follow-up Instructions With: Address: When: ELIZABETH DURAN [address] [place] [address], [address] [place], [place] [id number] Business (1) 12/27/2021 8:30 AM With: Address: When: RONNIE MANTILLA [address] [place] [address] [place] [id number] Business (1) Medications During the course of your visit, your medication list was updated with the most current information. The details of those changes are reflected below: Medications to Continue That Have Not Changed Other Medications ascorbic acid/chondroitin/glucos a/rudolph (Glucosamine Chondroitin oral capsule) 1 tab(s) Oral every day. diclofenac (diclofenac sodium 75 mg oral delayed release tablet) 1 tab(s) Oral 2 times a day. ezetimibe (Zetia 10 mg oral tablet) 1 tab(s) Oral every day. lovastatin (lovastatin 10 mg oral tablet) 1 tab(s) Oral every day. It is important to always keep an active list of medications available so that you can share with other providers and manage your medications appropriately. As an additional courtesy, we are also providing you with your final active medications list that you can keep with you. ascorbic acid/chondroitin/glucos a/rudolph (Glucosamine Chondroitin oral capsule) 1 tab(s) Oral every day. diclofenac (diclofenac sodium 75 mg oral delayed release tablet) 1 tab(s) Oral 2 times a day. ezetimibe (Zetia 10 mg oral tablet) 1 tab(s) Oral every day. lovastatin (lovastatin 10 mg oral tablet) 1 tab(s) Oral every day. Take only the medications listed above. Contact your doctor prior to taking any medications not on this list. Diet & Activity Patient Activity Level: As Tolerated Patient Diet: Regular Patient Activity Restrictions: Comment: Patient education materials, if any, will display below DR. ALBARADO POST OPERATIVE KNEE ARTHROSCOPY INSTRUCTIONS SURGEONS WRITTEN INSTRUTCTIONS: -If you have been given a cryo cuff after surgery you should use it about 20 min/hour for the first 24 hours. After that it is optional. TIP: Many patients prefer to use it a little longer because it helps to reduce the pain. -You should take it easy for the first 3 days following surgery. You should be a ?couch potato? and get up to eat and go to the bathroom. After the first 3 days, you may gradually increase your activities as tolerated. -Change your dressing in 1 day. If the wounds are clean and dry you can cover them with a band-aid. -You may shower in 1 day. DO NOT submerge the wound under water as in a bathtub, swimming pool, or hot tub. -You may bear weight as tolerated. Using crutches or assisted devices are not required. -You should elevate your extremity -If you have any questions or concerns, please call the office at [phone] Viruses or Bacteria What?s got you sick? Antibiotics only treat bacterial infections. Viral illnesses cannot be treated with antibiotics. When an antibiotic is not prescribed, ask your healthcare professional for tips on how to relieve symptoms and feel better. Usual Cause Illness Viruses Bacteria Antibiotic Needed Cold/Runny Nose NO Bronchitis/Chest Cold (in otherwise healthy children and adults) NO Whooping Cough Yes Flu NO Strep Throat Yes Sore Throat (except strep) NO Fluid in the middle ear (otitis media with effusion) NO Urinary (more content not included)... Normal [facility] MAGR Intraoperative Recordon 12-18-2021 MAGR Intraoperative Record MAGR Intra-Op Record Summary Primary Physician: Oksana Tan DO Finalized Date/Time: 12/18/21 21:11:31 Pt. Name: LESLIE COLLINS/Sex: 1965 MALE Med Rec #: [id number] Physician: Oksana Tan DO Financial #: [id number] Pt. Type: D Room/Bed: / Admit/Disch: 12/18/21 12:18:00 - 12/18/21 17:20:00 Institution: Case Times MAGR Entry 1 Patient In Room Time 12/18/21 15:13:00 Out Room Time 12/18/21 15:58:00 Anesthesia Start Time 12/18/21 15:13:00 Stop Time 12/18/21 15:59:00 Surgery Start Time 12/18/21 15:38:00 Stop Time 12/18/21 15:46:00 Last Modified By: Tracy Vaca RN 12/18/21 16:09:46 Case Attendance MAGR Entry 1 Entry 2 Entry 3 Case Attendee Oksana Tan William MD Long, Barbara RN Andrew DO Role Performed Surgeon - Primary Anesthesiologist of Disability Examiner Record Time In 12/18/21 15:13:00 12/18/21 15:13:00 12/18/21 15:13:00 Time Out 12/18/21 15:46:00 12/18/21 15:58:00 12/18/21 15:58:00 Procedure Arthroscopy Knee(Right) Arthroscopy Knee(Right) Arthroscopy Knee(Right) Last Modified By: Tracy Vaca RN, Barbara RN Long, Barbara RN 12/18/21 16:09:47 12/18/21 16:09:47 12/18/21 16:09:47 Entry 4 Entry 5 Case Attendee Miriam You Jennifer RNFA RN RISK MGR Role Performed Scrub Personnel Disability Examiner Time In 12/18/21 15:13:00 12/18/21 15:13:00 Time Out 12/18/21 15:58:00 12/18/21 15:58:00 Procedure Arthroscopy Knee(Right) Arthroscopy Knee(Right) Last Modified By: Tracy Vaca RN, Barbara RN 12/18/21 16:09:47 12/18/21 16:09:47 Surgical Procedures MAGR Pre-Care Text: A.20 Verifies operative procedure, surgical site, and laterality Im.150 Develops individualized plan of care Entry 1 Procedure Arthroscopy Knee Primary Procedure Yes Primary Surgeon Oksana Tan DO Surgeon Comment RIGHT KNEE SCOPE Start 12/18/21 15:38:00 Stop 12/18/21 15:46:00 Anesthesia Type General Surgical Service Orthopedics Wound Class Clean Technique Details Closure Technique Primary Entire procedure No was performed via laparoscope or robotic assistance Last Modified By: Tracy Vaca RN 12/18/21 16:09:49 Post-Care Text: O.730 The patient's care is consistent with the individualized perioperative plan of care General Case Data MAGR Pre-Care Text: A.350.1 Classifies surgical wound Entry 1 Case Information OR MAGR OR 01 Case Level Level 4 Wound Class Clean Specialty Orthopedics ASA Class 2 Diagnosis Preop Diagnosis INTERNAL DERANGEMENT Postop Same As Preop Yes RIGHT KNEE Postop Diagnosis INTERNAL DERANGEMENT RIGHT KNEE Blunt or No Is the procedure No penetrating injury considered occured prior to Emergent/Urgent? the start of the procedure: Last Modified By: Tracy Vaca RN 12/18/21 15:38:24 Post-Care Text: O.760 Patient receives consistent and comparable care regardless of the setting Time Out MAGR Entry 1 Time out date/time 12/18/21 15:37:00 All team members Yes have introduced themselves by name and role Surgeon, Yes Surgeon reviews Yes anesthesia, nurse critical or confirm patient, unexpected steps, site, procedure operative duration, anticipated blood loss Anesthesia team No Nursing team Yes reviews any reviews sterility patient-specific (including concerns indicator results) and equipment issues/concerns Antibiotic Antibiotic Yes Administration Time 15:10 prophylaxis given within the last 60 minutes Last Modified By: Tracy Vaca RN 12/18/21 15:38:18 Patient Positioning MAGR Pre-Care Text: A.280 Identifies baseline musculoskeletal status Im.40 Positions the patient Im.80 Applies safety devices Entry 1 Procedure Arthroscopy Knee(Right) Body Position Supine Left Arm Position Extended on padded arm Right Arm Position Extended on padded arm board board Left Leg Position Other/see comments Right Leg Position Other/see comments Feet Uncrossed? Yes Press Points Checked Yes Additional Operative leg in Positioning Device Safety Strap, Arm Information arthroscopic knee Boards, Leg Arellano arellano with padded insert right, non operative leg supported with a thick pad dangling at the end of the bed left. Outcome Met (O.80) Yes Last Modified By: Tracy Vaca RN 12/18/21 15:39:49 Post-Care Text: E.290 Evaluates musculoskeletal status O.80 Patient is free from signs and symptoms of injury related to positioning Skin Prep MAGR Pre-Care Text: A.30 Verifies allergies Im.270 Performs skin preparation Im.270.1 Implements protective measures to prevent skin and tissue injury due to chemical sources Entry 1 Skin Prep Syntegrity Prep Agents (Im.270) Chlorhexidine Gluconate Prep By Cate Forrest RN and Alcohol Prep Area (Im.270) Knee and lower leg, Foot Prep Area Details Right Skin Prep Agent Dry Yes Without Pooling Hair Removal Syntegrity Hair Remov (more content not included)... [facility] PACU Record [facility] [place] [place] PAC[place] Record Summary Primary Physician: Oksana Tan DO Finalized Date/Time: 12/18/21 17:00:07 Pt. Name: LESLIE COLLINS/Sex: 1965 MALE Med Rec #: [id number] Physician: Oksana Tan DO Financial #: [id number] Pt. Type: D Room/Bed: / Admit/Disch: 12/18/21 12:18:00 - Institution: PACU Case Times MAGR Entry 1 In PACU I 12/18/21 15:58:00 Discharge from PACU 12/18/21 16:29:00 I Last Modified By: Liz Paredes RN 12/18/21 17:00:05 Finalized By: Liz Paredes RN Document Signatures Signed By: Liz Paredes RN 12/18/21 [facility] Postoperative Record MAGR Phase II Record Summary Primary Physician: Oksana Tan DO Finalized Date/Time: 12/18/21 17:27:23 Pt. Name: KARINALESLIE/Sex: 1965 MALE Med Rec #: [id number] Physician: Oksana Tan DO Financial #: [id number] Pt. Type: D Room/Bed: / Admit/Disch: 12/18/21 12:18:00 - Institution: Phase II Case Times MAGR Pre-Care Text: Patient is free from s/s of injury. Patient remains free from compromised physical state related to surgery or anesthesia. Patient comfort maintained. Patient/family verbalize understanding of discharge instructions. Entry 1 In PACU II 12/18/21 16:30:00 Discharge from PACU 12/18/21 17:20:00 II Last Modified By: Liz Paredes RN 12/18/21 17:27:22 Post-Care Text: The patient remains free from s/s of injury. Patient's vital signs stable, circulation maintained, return to preop mental and physical status, opsite/dressing intact, minimal or absent nausea and vomiting, tolerates po intake. Patient verbalizes adequate pain control. Patient/family express understanding of discharge instructions. Finalized By: Liz Paredes RN Document Signatures Signed By: Liz Paredes RN 12/18/21 17:27 [facility] MAGR Preoperative Recordon 0 12-18-2021 MAGR Preoperative Record MAGR Pre-Op Record Summary Primary Physician: Oksana Tan DO Finalized Date/Time: 12/18/21 17:00:36 Pt. Name: LESLIE COLLINS OKSANA Cueto/Sex: 1965 MALE Med Rec #: [id number] Physician: Oksana Tan DO Financial #: [id number] Pt. Type: D Room/Bed: / Admit/Disch: 12/18/21 12:18:00 - Institution: Pre-Op Case Times MAGR Pre-Care Text: Patient will be optimally prepared for surgery. Patient is free from s/s of injury. Provide information to patient/family related to plan of care. Verify patient allergies. Confirm identity and verify consent before the operative or invasive procedure. Entry 1 Patient Arrival Time 12/18/21 12:25:00 Preop Departure 12/18/21 15:10:00 Last Modified By: Tracy Vaca RN 12/18/21 15:31:56 Post-Care Text: Patient is prepared mentally and physically and is ready for surgery. The patient remains free from s/s of injury. Patient/family express understanding of plan of care and participate in decisions affecting his or her perioperrative plan of care. Allergies documented appropriately. Patient identifiers and consent correct. General Comments: Reviewed for the next 24 hours not to do anything that requires concentration. Denies chest pain, shortness of breath or illnessess. Denies pacemaker/defib. History of sleep apnea, usea a cpap. Finalized By: Liz Paredes RN Document Signatures Signed By: Tracy Vaca RN 12/18/21 15:31 Liz Paredes RN 12/18/21 17:00 Unfinalized History Date/Time Username Reason for Unfinalizing Freetext Reason for Unfinalizing 12/18/21 17:00 HREED Finish Documentation Normal [facility] Operative Report - Surgeon/P billy 12-18-2021 Operative Report - Surgeon/Physician Preoperative diagnosis: Internal derangement right knee Postoperative diagnosis: Tear medial meniscus right knee Procedure: Arthroscopic partial medial meniscectomy right knee Surgeon: Brennan Tan D.O. Anesthesia: General Indications for surgery: Patient had symptoms of a meniscus tear he had failed conservative treatment it was recommended that he have arthroscopy he was agreeable informed consent was obtained Estimated blood loss: Scant Complications: No complications Findings: Large complex displaced tear of the medial meniscus with adjacent erosive changes on the medial femoral condyle and small areas of exposed bone Procedure summary: Patient was brought to the op suite he was given general anesthetic the knee was examined under anesthesia there is no instability the leg was then placed in leg arellano and prepped and draped in usual fashion timeout was taken. An inferior lateral portal was established then under direct visualization an inferior medial The patellofemoral joint there was irregularity of the articular surface. There was a small erosive change in the femoral trochlea and is very small area of exposed bone. In the lateral compartment articular cartilage was grossly normal lateral meniscus was intact In the notch the cruciate ligaments were present and intact The medial compartment there was a displaced complex tear of the medial meniscus it appeared that it was catching between the 2 bones and with flexion and extension the knee tended to propagate There was also erosive changes along the medial femoral condyle adjacent to the tear with areas of exposed bone. Utilizing a resector and meniscal biters a partial medial meniscectomy was performed taking the unstable torn meniscus back to a stable base and smoothing and contouring the edges. Each compartment was revisited the joint was irrigated and evacuated and the portals were closed with nylon suture. Sterile dressings were applied. [Electronically Signed on: 12/18/2021 16:04 EDT] Oksana Tan DO [Verified on: 12/18/2021 16:04 EDT] Oksana Tan DO [facility] Patient Handouton 12-18-[address] ALBARADO POST OPERATIVE KNEE ARTHROSCOPY INSTRUCTIONS SURGEONS WRITTEN INSTRUTCTIONS: -If you have been given a cryo cuff after surgery you should use it about 20 min/hour for the first 24 hours. After that it is optional. TIP: Many patients prefer to use it a little longer because it helps to reduce the pain. -You should take it easy for the first 3 days following surgery. You should be a ?couch potato? and get up to eat and go to the bathroom. After the first 3 days, you may gradually increase your activities as tolerated. -Change your dressing in 1 day. If the wounds are clean and dry you can cover them with a band-aid. -You may shower in 1 day. DO NOT submerge the wound under water as in a bathtub, swimming pool, or hot tub. -You may bear weight as tolerated. Using crutches or assisted devices are not required. -You should elevate your extremity -If you have any questions or concerns, please call the office at [phone] [facility] Progress Note - Nurseon Progress Note - Nurse Spoke with pt and informed him to be here at 1230 and NPO after mN, he verbalizes understanding. [Electronically Signed on: 12/15/2021 10:45 EDT] Tex Starks RN [Verified on: 12/15/2021 10:45 EDT] Tex Starks RN [facility] 2018 Novel Coronavirus (CoVI D-19), MIGUEL LCon 12-14-2021 SARS-CoV-2 (COVID-19) RNA MIGUEL+probe Ql (Unsp spec) Not detected Invalid Interpretation Code Not Detected [facility] Comment on above: Order Comment: [id number] 1Pt. Result Comment: This nucleic acid amplification test was developed and its performance characteristics determined by [facility]. Nucleic acid amplification tests include RT- PCR and TMA. This test has not been FDA cleared or approved. This test has been authorized by FDA under an Emergency Use Authorization (EUA). This test is only authorized for the duration of time the declaration that circumstances exist justifying the authorization of the emergency use of in vitro diagnostic tests for detection of SARS-CoV-2 virus and/or diagnosis of COVID-19 infection under section 564(b)(1) of the Act, 21 U.S.C. 360bbb-3(b) (1), unless the authorization is terminated or revoked sooner. When diagnostic testing is negative, the possibility of a false negative result should be considered in the context of a patient's recent exposures and the presence of clinical signs and symptoms consistent with COVID-19. An individual without symptoms of COVID-19 and who is not shedding SARS-CoV-2 virus would expect to have a negative (not detected) result in this assay. Performed At: [address] [id number] Manasa Mar PhD Ph:[phone] Performed By: #### [id number] ####[facility] ([facility])[address] [place] [address] Coding Summaryon 12-12-2021 Coding Summary HTMLBase 64 OeqetfkiBPo3dCl+PGhlYWQ +ME2QJBNfU97zrOCodM8VR4 eBLW1MMRHWCSPDJS5SRX6wi UU6RNwfR0MockTe LbdqkEOlEC15DGg6QTT0hQz xLJpjaS5csJHzT5a3QfUeGS 28eV63UMidBYJpHjT1CyNzy jsgbWFy X7kzQsXhkTAaOco+PHRhYmx lIHdpZHRoPScxMDAlJyBzdH dlRG8vZo7zDEFaLCYnvIahn HNlOiBj u5fnHBNeLVaxJH5nhXyaX6T emGR1TBFij3c1Ck79qBC+PH BzQQJ3sHoaIXaya060GbFln 4jdZXQ4 aDSkGOhxMSD4N93zv4K2LUG fKUMhGRC9fPY1zM3ebEquio wgU8KutIAdBpH4XGT3hTDiw Y4wuDjl sjihoR8oNzg+W38BMD5XEXX JJA2PPuu7H3HdWdkhuRH+PC 20PVTbYM81pWDapGMbc9ecf At2LyEf OQNsTWU8kMibCAqxm7RkKVJ zR32nqIDmm4X6QYVhdQkvuA WtUbYzuAR5fO1lIIvfusxsi 2hvdzsn Hqcgx9iqys06yK95R42nCXv zLVUsVEQ9FMStKTFghVmuvy 4kyM7mSn9+PMmsw8reb3jva Js7BrRz HSJrssEkcZrkYSS2t0FmDn6 8A6PprNnzh8DzKer1ti28qK Xqh5G4sMF8WMycJWTleT6nZ WxlZnQ6 UPQuVrTbeV05pGEeMVxxQa2 mnKjoyXhhWG4gFGRugnuxHO DrjC5vITImiEVvkWonKW6oH TBpbjtm j157DxMxZIM0AHXskWLpC5H hbG6bGqKlAWSbFHFyX1SogO HvASrgB899KLvaZzW1PRQkr oErN9Zy IIZzsWfbIcX8l2O1Bp4Ro5U dmcndTIJ0XPztRWL3VcXzZs TyDsN8Q9SoFtd4IQPeoHasG N3zK8Tm VHFxeknyxhvicMZ1EDNlXAR vuZ13fUReXNauYl8bl6Q8g1 83KZHkQOAlxB25Db9rpWezD TBwdCBU uA4dftxjz5ylvntnUcYfMIQ pONu8UNc7MLRnuKojPpGjOY L9SxF1ULK1xHTyeN4jeRojj anndA2q Oyc+T85icD3wPAY3GJE3boy cVBAxfrLvXU31NE34U5HgFb wvdGFibGU+PGRpdiBzdHlsZ K7kSrHu x6jqk7AuRIhaX2WpHGNyDLs gOnx1SDGuUCV3ySJ1pK7hIX HqRDlbm8W1gBQ6D4DwyjCmx j6iz3gp IYNnEZpxH06kbDBkw0R4BYO qyGN1QLOqrGwmZkSzwL43Qa c+AEJfyJnvw8BaBpzho7psl 4tsaGe0 RrAqGVYeohFngVktJXM9k2E tCz12K17fPVwcBHLaRDIkZE KzIKGnaBntwj8evM1fLs9+P GNvbCB3 lWN6oF9mBLBzNyG7PCrgN94 4RpDnzNAfYavdm1jzf2odsB w4EnKzLTRvslKqpNeuBYE8h 6CvBi55 W43cDEpmVFAqWTIpPTUuQVW hfVvjqi3kqZ4zCt9+PC9jb2 gslv02pD95cEN+MUUhBSV3u WxlPSdw RNLkeN6rJZwsMsT4XDGuKdY ebN10nGHaGSlxWh1jgJrdcD xjAD6wIQTuuccof273JbOux 2xkIDEw aHMmSQfbWJS1G78xe1C3GCS eVQOoGXQ4eED3iL5mzFnvlx ogbGVmdDsgdmVydGljYWwtY BfhB203 IHRvcDsnPlBhdGllbnQgTmF wPQw5Q9SoPwi3VAJfpZsuFU 1dyXLkNFiyMs4cgQmjaRmxK V4sUUNt utnis856WqWsc5paXJWocTK yPOfgUII1C53ew1A3CMBmLC JsNDN8bTP0nE0ypVsyodobv GVmdDsg egOuqFohAIvvQKeaQ127IVD dsWxpZrSfcwIrFHXvaOD0FM 13PR46eBZoj3H4oPO0D3AwB GRpbmct stjxnUS8XQXrMFLtpB81Sr0 weAgmPv6kKENsHIP7VZRyaB EpZ5GfhU3tEdCuMCUqKXGjX 3RleHQt RLvnY887YDeaRiA9AHXfftI aQ0MbDOBalKajScB1f4M8Lc 9CE4G6SR15HT69pIOac2X8s FA0Z9Xy SMFmqwenbujwqYG3OUEzDWR gdA13Fg1plXuaVa5pUAYfRS V5RCDvbVRqJ3JraC3oPtVhL DAwMDAw Q8XafTGxMEbpX567MScrNbT 2KAYaonDaL5BlUHXvqVraBn B9g0W4Ar5IUDb4SR68BK20c JSmi0Q9 oIY9Z6CeQSVuzfvttfdwoOG 9JBLwEXIawA20Px4pmJsnBl 4oFKFrZBP5ZQSdcCUyA3Lbw V0iMjFg WVCjZAYiF8VikBJhFMhiX65 9HFlhIwF2KOMdbfTxB4UlLR HzsTzrGeW4x3O3Wo6PULMvZ X28DEM1 rAH4QJ38HU23K0FiYmorpKV ibGU+PHRhYmxlIHdpZHRoPS pzKLVwNeMykWzvSS3cAb6aK GVyLWNv nZkziBJzPrDhs4iqKFVnGGb eAI7muBluF9JqrIO2ZYRca7 f5Ev54A98dJ1LlzFM+PGNvb MP3sFK4 cN0zVsMiRwR8SUvwG395RlB klSQiGqour3rip5axjUx0Xm C9YPLxfdIgeDqkLIX5l6FzT m20D55p IHdpZHRoPSIxNSUiIHZhbGl dvf2pfG8eTk7+AUMtzSF9nE L3vQ5vUnOwByH8YPnmB077N nRvcCIv Mhpyi3zvl6grxKr8ZsVhGBK azlAaaUzsRTC4j1JeCl48I3 ZfoXwgn1IjXyo7wc44xSFqk 5H1yVC8 R1HvIKWrdqpkhTPncVpxVB2 vMPKovowrERUbwP8xUZJhO4 z9WoHuOuY4MUffY7BzvcI0B DEwcHQg OPrgAFX6E86ia8D8VFOfMIP wHIB2tVD5zM1rpTtxscdaiD VmdDsgdmVydGljYWwtYWxpZ 246IHRv fNlsQHJamO9zMEAgkUJkdOr yWZ4lBJBerpphVu4UG4fMNj iFZXSHMQUNTFbTOVUFTO41O I13aINu v2Z8hEW9O9SfCJIrqhekauc msBW2FEVnZBMkbQ49wGBgNV uvOo8rl5V2z489XYBuYUNzf B28Zb8u sQuoLALkeOECaH3clsokl5i ecwzfNqZwGYXbHKn6ZJl3UX FlcMwvXtEmPNA7OnZ5WCP6y UGsoU9v hCjfpnqcaD8mWmg+MDEvMTU wBTw1KBjitBK+PRQpCTT6oT haQVntCDKigO7qJJZvG8p7N iAwLjA1 GVvrP9EdIVLolsheAe81bT4 uPoUaBtU4LEgjZ4TisgQ8NU SckFWqAVprFGZ7D30ns1Y1P CMwMDAw UDS6vFO9mF2vzXpymdvflWO mdDsgdmVydGljYWwtYWxpZ2 69AQCwyNlwOjS7QXfsAZAoM N27MS58 nJKxj0E6zPP4L8HaQVYotje yrivlaFZ5VIVtXUEsrZ87dM JjEQbsHu9yl5F3n792IWPpO DUwaW47 Hp9uoPfvGYDbqRJZaF7qvzp zt2erxkcsTaUgWKHgUGh9OP i3ULRgqIdzKzYxALY1XnJ3P CO8zQBv sX8tcKxjzzmunR2jRib+TUF MRTwvdGQ+KEHkBLU0hTaoNO ncWTMyfR4pMCLuK0h2WqRsW lM1URhr F7EtCCDabpwlGx34gC2oLeO mIhU4MYmyC6WynfQ3XITqfL SlLRnwVQC9F63np6I1TSIaM DAwMDA7 vNY7hY3wnHmuykxioLGsjMl trvKqaCvkALvkZImrR651EE FahYhmDx4FWB07KC54P0EtQ jwvdGFi bGU+PHRhYmxlIHdpZHRoPSc xSKAeFwDagYtqKA2nFr8vOM RfXWEmvCylpJLdLcOrj5phN XBzZTsg HK9gkAowN0UwkDJ1ZCWkz4c 3Yk79Y90nW4OkvCK+PGNvbC T9kAB2rR8aJdKjHsC7KFwvR 249InRv eJXqXzcat0bud5lloPz5AkZ nWSYhmeTeqAcjGYJ9c7OuNt 62E97uLCfuHDOwPYPrHAKeU HZhbGln yt0smJ9rEl7+PREkcUF1pXU 3rO5aRbQaHpK5WMbxS428Rc DzeSTvLmqmL13xG6EqySD+P HRyPjx0 NGEcyMkfVX4yfKKeKTmxMw8 oEQQ9AtGuRzXqALhvZ2ZbSN EgckfuyodsjKD0HJVhWMHxx G45Vl8b oPnyYp9yPUMnNJT8HLQicPT hZ4CbbY3zUrDdXIDqQGEuD8 ExsBIrKRhsF170LUwlEfF7K HZlcnRp Z1KnRHVsoTjbDlK3o3F5Le9 KpVxcmLYgSX2xFgAfRGn0F4 JtCum0MIVkpIxjVL3hfTGiB EzkUg1f vLmjjQrhUV3cALJngzjaf91 8TgPvx8vyZKXkfDFaMVyzYS N7H46sk4Q1WXOtSYHkMRR9p BL9rN1n bGlnbjogbGVmdDsgdmVydGl iEPqnLPtaY666JAQbbWgsIj SNKby7A7GzUhc0BLBwzXmbP K1dgNFq HGamVy7bpByjpDngXM0bGCU xehiql542WiVje8uqIIHhnX SbVUyiDDJ7O02ou3P6TNDoY DAwMDA7 dTO9bC6giTwcyzukzCQtfCv recQfdXuwPTbbPVgpQ397JE IqhSkhCu4SZfl5B1BkEkj7R CBzdHls KN2kyQDdPUonEu6aaEyevPm tNW6jYLLqexcnu403RjBcu3 zsFLKbpZOiNPbeLZV8E39uh 4I1RPAl SPLeWKO5uTX3uC5rcMmcvmu gbGVmdDsgdmVydGljYWwtYW dvE612GOKzjEfyIkZpuEQtO jwvdGQ+ SP71zr05R3EyWeqhJhx5XHC oBQG3zBU6xB3gWEQoJFwpp6 F8cIH5H0FnbtNfrf0gk4uyT XBzZTog Y29 (more content not included)... [facility] Progress Note - Nurseon 11-11 Progress Note - Nurse PAT chart review for 12-18-2021 surgery done per anesthesiologist, Dr. Pathak- no additional orders received. [Electronically Signed on: 12/06/2021 10:23 EDT] Roberta Horner RN [Verified on: 12/06/2021 10:23 EDT] Roberta Horner RN [facility] CBC AUTO DIFFon 10-27-2021 BASO # 0.0 103/ul Normal 0.0-0.1 [facility] Comment on above: Performed By: #### C BC #### [facility] [address] [address] [address] Mitesh Francisco Basophils/100 WBC (Bld) 0.2 % Normal 0.2-2.0 [facility] Comment on above: Performed By: #### C BC #### [facility] [address] [address] [address] Mitesh Francisco EO # 0.0 103/ul Normal 0.0-0.7 [facility] Comment on above: Performed By: #### C BC #### [facility] [address] [place] [address] Dr. Mitesh Francisco Eosinophils/100 WBC (Bld) 0.1 % Critically low 0.9-7.0 [facility] Comment on above: Performed By: #### C BC #### [facility] [address] [place] [address] Dr. Mitesh Francisco Erythrocyte distribution width (RBC) [Ratio] 12.5 % Normal 11.0-15.0 [facility] Comment on above: Performed By: #### C BC #### [facility] [address] [place] [address] Dr. Mitesh Francisco Hematocrit (Bld) [Volume fraction] 40.8 % Critically low 42.0-54.0 [facility] Comment on above: Performed By: #### C BC #### [facility] [address] [place] [address] Dr. Mitesh Francisco Hemoglobin (Bld) [Mass/Vol] 13.7 g/dL Critically low 14.0-18.0 [facility] Comment on above: Performed By: #### C BC #### [facility] [address] [place] [address] Dr. Mitesh Francisco IG # 0.04 10e3/ul Critically high 0.00-0.03 [facility] Comment on above: Performed By: #### C BC #### [facility] [address] [place] [address] Dr. Mitesh Francisco IG % 0.4 % Normal 0.0-0.5 [facility] Comment on above: Performed By: #### C BC #### [facility] [address] [address] [address] Mitesh Francisco LYMPH # 0.9 103/ul Critically low 1.2-3.8 [facility] Comment on above: Performed By: #### C BC #### [facility] [address] [place] [address] Dr. Mitesh Francisco Lymphocytes/100 WBC (Bld) 10.3 % Critically low 20.5-60.0 [facility] Comment on above: Performed By: #### C BC #### [facility] [address] [place] [address] Dr. Mitesh Francisco MANUAL DIFF REQ NO Normal [facility] Comment on above: Performed By: #### C BC #### [facility] [address] [place] [address] Dr. Mitesh Francisco MCH (RBC) [Entitic mass] 32.5 pg Normal 25.9-34.0 [facility] Comment on above: Performed By: #### C BC #### [facility] [address] [place] [address] Dr. Mitesh Francisco MCHC (RBC) [Mass/Vol] 33.6 g/dL Normal 29.9-35.2 [facility] Comment on above: Performed By: #### C BC #### [facility] [address] [place] [address] Dr. Mitesh Francisco MCV (RBC) [Entitic vol] 96.7 fL Critically high 80.0-94.0 [facility] Comment on above: Performed By: #### C BC #### [facility] [address] [place] [address] Dr. Mitesh Francisco MONO # 0.6 103/ul Normal 0.3-0.8 [facility] Comment on above: Performed By: #### C BC #### [facility] [address] [place] [address] Dr. Mitesh Francisco Monocytes/100 WBC (Bld) 6.3 % Normal 1.7-12.0 [facility] Comment on above: Performed By: #### C BC #### [facility] [address] [address] [address] Mitesh Francisco NEUT # 7.6 103/ul Critically high 1.4-6.5 [facility] Comment on above: Performed By: #### C BC #### [facility] [address] [address] [address] Mitesh Francisco Neutrophils/100 WBC (Bld) 82.7 % Critically high 43.0-75.0 [facility] Comment on above: Performed By: #### C BC #### [facility] [address] [address] [address] Mitesh Francisco Platelet mean volume (Bld) [Entitic vol] 11.5 fL Normal 9.5-13.5 [facility] Comment on above: Performed By: #### C BC #### [facility] [address] [place] [address] Dr. Mitesh Francisco PLT 115 103/ul Critically low 150-450 [facility] Comment on above: Performed By: #### C BC #### [facility] [address] [address] [address] Mitesh Francisco RBC 4.22 106/ul Critically low 4.70-6.10 [facility] Comment on above: Performed By: #### C BC #### [facility] [address] [place] [address] Dr. Mitesh Francisco WBC 9.2 103/ul Normal 4.0-11.0 [facility] Comment on above: Performed By: #### C BC #### [facility] [address] [place] [address] Dr. Mitesh Francisco CRPon 10-27-2021 CRP 11.9 mg/dL Critically high <=1.0 [facility] Comment on above: Performed By: #### C RP #### [facility] [address] [place] [address] Dr. Mitesh Francisco PROF 14(COMP METB)on 022 Albumin [Mass/Vol] 3.1 g/dL Critically low 3.4-5.0 [facility] Comment on above: Performed By: #### C RP #### [facility] [address] [address] [address] Mitesh Francisco Albumin/Globulin [Mass ratio] 1.0 {ratio} Normal [facility] Comment on above: Performed By: #### C RP #### [facility] [address] [place] [address] Dr. Mitesh Francisco ALP [Catalytic activity/Vol] 51 U/L Normal 46-116 [facility] Comment on above: Performed By: #### C RP #### [facility] [address] [place] [address] Dr. Mitesh Francisco ALT [Catalytic activity/Vol] 38 U/L Normal 16-63 [facility] Comment on above: Performed By: #### C RP #### [facility] [address] [place] [address] Dr. Mitesh Francisco Anion gap [Moles/Vol] 11.2 mmol/L Normal [facility] Comment on above: Performed By: #### C RP #### [facility] [address] [place] [address] Dr. Mitesh Francisco AST [Catalytic activity/Vol] 11 U/L Critically low 15-37 [facility] Comment on above: Performed By: #### C RP #### [facility] [address] [place] [address] Dr. Mitesh Francisco Bilirubin [Mass/Vol] 0.7 mg/dL Normal 0.2-1.0 [facility] Comment on above: Performed By: #### C RP #### [facility] [address] [place] [address] Dr. Mitesh Francisco Calcium [Mass/Vol] 8.0 mg/dL Critically low 8.5-10.1 [facility] Comment on above: Performed By: #### C RP #### [facility] [address] [place] [address] Dr. Mitesh Francisco Chloride [Moles/Vol] 106 mmol/L Normal 98-107 [facility] Comment on above: Performed By: #### C RP #### [facility] [address] [place] [address] Dr. Mitesh Francisco CO2 [Moles/Vol] 24.2 mmol/L Normal 21.0-32.0 [facility] Comment on above: Performed By: #### C RP #### [facility] [address] [place] [address] Dr. Mitesh Francisco Creatinine [Mass/Vol] 1.07 mg/dL Normal 0.70-1.30 [facility] Comment on above: Performed By: #### C RP #### [facility] [address] [place] [address] Dr. Mitesh Francisco EGFR-AF CONGOLESE >60 Normal >=60 [facility] Comment on above: Performed By: #### C RP #### [facility] [address] [place] [address] Dr. Mitesh Francisco EGFR-NON AF CONGOLESE >60 Normal >=60 [facility] Comment on above: Performed By: #### C RP #### [facility] [address] [place] [address] Dr. Mitesh Francisco Globulin (S) [Mass/Vol] 3.0 g/dL Normal [facility] Comment on above: Performed By: #### C RP #### [facility] [address] [place] [address] Dr. Mitesh Francisco Glucose [Mass/Vol] 107 mg/dL Critically high 74-106 [facility] Comment on above: Performed By: #### C RP #### [facility] [address] [place] [address] Dr. Mitesh Francisco Potassium [Moles/Vol] 3.8 mmol/L Normal 3.5-5.1 [facility] Comment on above: Performed By: #### C RP #### [facility] [address] [place] [address] Dr. Mitesh Francisco Protein [Mass/Vol] 6.1 g/dL Critically low 6.4-8.2 [facility] Comment on above: Performed By: #### C RP #### [facility] [address] [place] [address] Dr. Mitesh Francisco Sodium [Moles/Vol] 138 mmol/L Normal 136-145 [facility] Comment on above: Performed By: #### C RP #### [facility] [address] [place] [address] Dr. Mitesh Francisco Urea nitrogen [Mass/Vol] 18.0 mg/dL Normal 7.0-18.0 [facility] Comment on above: Performed By: #### C RP #### [facility] [address] [place] [address] Dr. Mitesh Francisco Urea nitrogen/Creatinine [Mass ratio] 16.8 mg/mg Normal [facility] Comment on above: Performed By: #### C RP #### [facility] [address] [place] [address] Dr. Mitesh Francisco AMYLASEon 10-26-2021 Amylase [Catalytic activity/Vol] 32 U/L Normal 25-115 [facility] Comment on above: Performed By: #### A MY, CMP, LIPA #### [facility] [address] [place] [address] Dr. Mitesh Francisco CBC AUTO DIFFon 10-26-2021 BASO # 0.0 103/ul Normal 0.0-0.1 [facility] Comment on above: Performed By: #### C BC #### [facility] [address] [place] [address] Dr. Mitesh Francisco Basophils/100 WBC (Bld) 0.6 % Normal 0.2-2.0 [facility] Comment on above: Performed By: #### C BC #### [facility] [address] [place] [address] Dr. Mitesh Francisco EO # 0.1 103/ul Normal 0.0-0.7 [facility] Comment on above: Performed By: #### C BC #### [facility] [address] [place] [address] Dr. Mitesh Francisco Eosinophils/100 WBC (Bld) 1.3 % Normal 0.9-7.0 [facility] Comment on above: Performed By: #### C BC #### [facility] [address] [place] [address] Dr. Mitesh Francisco Erythrocyte distribution width (RBC) [Ratio] 12.4 % Normal 11.0-15.0 [facility] Comment on above: Performed By: #### C BC #### [facility] [address] [place] [address] Dr. Mitesh Francisco Hematocrit (Bld) [Volume fraction] 44.9 % Normal 42.0-54.0 [facility] Comment on above: Performed By: #### C BC #### [facility] [address] [place] [address] Dr. Mitesh Francisco Hemoglobin (Bld) [Mass/Vol] 15.1 g/dL Normal 14.0-18.0 [facility] Comment on above: Performed By: #### C BC #### [facility] [address] [place] [address] Dr. Mitesh Francisco IG # 0.01 10e3/ul Normal 0.00-0.03 [facility] Comment on above: Performed By: #### C BC #### [facility] [address] [place] [address] Dr. Mitesh Francisco IG % 0.1 % Normal 0.0-0.5 [facility] Comment on above: Performed By: #### C BC #### [facility] [address] [place] [address] Dr. Mitesh Francisco LYMPH # 2.1 103/ul Normal 1.2-3.8 [facility] Comment on above: Performed By: #### C BC #### [facility] [address] [place] [address] Dr. Mitesh Francisco Lymphocytes/100 WBC (Bld) 30.7 % Normal 20.5-60.0 [facility] Comment on above: Performed By: #### C BC #### [facility] [address] [place] [address] Dr. Mitesh Francisco MANUAL DIFF REQ NO Normal [facility] Comment on above: Performed By: #### C BC #### [facility] [address] [place] [address] Dr. Mitesh Francisco MCH (RBC) [Entitic mass] 31.9 pg Normal 25.9-34.0 [facility] Comment on above: Performed By: #### C BC #### [facility] [address] [place] [address] Dr. Mitesh Francisco MCHC (RBC) [Mass/Vol] 33.6 g/dL Normal 29.9-35.2 [facility] Comment on above: Performed By: #### C BC #### [facility] [address] [place] [address] Dr. Mitesh Francisco MCV (RBC) [Entitic vol] 94.9 fL Critically high 80.0-94.0 [facility] Comment on above: Performed By: #### C BC #### [facility] [address] [place] [address] Dr. Mitesh Francisco MONO # 0.7 103/ul Normal 0.3-0.8 [facility] Comment on above: Performed By: #### C BC #### [facility] [address] [place] [address] Dr. Mitesh Francisco Monocytes/100 WBC (Bld) 10.2 % Normal 1.7-12.0 [facility] Comment on above: Performed By: #### C BC #### [facility] [address] [place] [address] Dr. Mitesh Francisco NEUT # 3.9 103/ul Normal 1.4-6.5 [facility] Comment on above: Performed By: #### C BC #### [facility] [address] [place] [address] Dr. Mitesh Francisco Neutrophils/100 WBC (Bld) 57.1 % Normal 43.0-75.0 [facility] Comment on above: Performed By: #### C BC #### [facility] [address] [place] [address] Dr. Mitesh Francisco Platelet mean volume (Bld) [Entitic vol] 11.2 fL Normal 9.5-13.5 [facility] Comment on above: Performed By: #### C BC #### [facility] [address] [place] [address] Dr. Mitesh Francisco PLT 137 103/ul Critically low 150-450 [facility] Comment on above: Performed By: #### C BC #### [facility] [address] [place], [place] [address] Dr. Mitesh Francisco RBC 4.73 106/ul Normal 4.70-6.10 [facility] Comment on above: Performed By: #### C BC #### [facility] [address] [place], [place] [address] Dr. Mitesh Francisco WBC 6.8 103/ul Normal 4.0-11.0 [facility] Comment on above: Performed By: #### C BC #### [facility] [address] [place], [place] [address] Dr. Mitesh Francisco CRPon 10-26-2021 CRP 2.3 mg/dL Critically high <=1.0 [facility] Comment on above: Performed By: #### C RP #### [facility] [id number] Mitesh Francisco CT ABD/PELV W CONon 10-27-19 CT ABD/PELV W CON EXAM: CT ABD/PELV W CON 10/26/2021 2:14 AM EDT [id number] CLINICAL STATEMENT: GENERALIZED ABDOMINAL PAIN COMPARISON: No prior studies are available at the time of dictation. TECHNIQUE: Helically acquired images were obtained of the abdomen and pelvis following 75 cc of Omnipaque 300 IV contrast. No oral contrast was administered. Dose reduction techniques were achieved by using automated exposure control and/or adjustment of mA and/or kV according to patient size and/or use of iterative reconstruction technique. 2-D reconstructed images are provided. FINDINGS: The gallbladder is unremarkable. Fatty infiltration of the liver. The upper abdominal solid organs are unremarkable. There is no bowel obstruction or free air. There is no ascites. There is no evidence of aortic aneurysm or dissection. The celiac artery, superior mesenteric artery, and superior mesenteric vein are grossly patent. There is no retroperitoneal adenopathy. There is no appendicitis. Sigmoid diverticulosis with moderate peripancreatic fat extending, acute diverticulitis. There are no pelvic masses or loculated fluid collections. Prostatomegaly. Left inguinal fat-containing hernia. The lung bases are clear. There are no destructive bone lesions identified. IMPRESSION: Sigmoid diverticulosis with moderate peripancreatic fat extending, acute diverticulitis. Fatty infiltration of the liver. Prostatomegaly. Left inguinal fat-containing hernia. FOLLOW-UP: Follow-up as clinically indicated. Electronically authenticated by: TRACY GARCIA Date: 2021-10-26 05:15 Normal [facility] CULTURE URINEon 10-26-2021 CULTURE URINE Culture Observations : LIGHT GROWTH OF MIXED SKIN JIM. NO POTENTIAL PATHOGENS SEEN. Normal [facility] Comment on above: Performed By: #### C RP #### [facility] [address] [place] [address] Dr. Mitesh Francisco Covid-19 PCR ([facility]on 10-11 SARS-CoV-2 (COVID-19) RNA MIGUEL+probe Ql (Unsp spec) Not detected Normal NOT DETECTED [facility] Comment on above: Result Comment: When diagnostic testing is negative, the possibility of a false negative should be considered in the context of a patient's recent exposures and the presence of clinical signs and symptoms consistent with SARS-CoV-2. This test is not yet approved or cleared by the [place] FDA. When there are no FDA-approved or cleared tests available, and other criteria are met, FDA can make tests available under an emergency access mechanism called an Emergency Use Authorization (EUA). The EUA for this test is supported by the [employer] of Health and Human Service's declaration that circumstances exist to justify the emergency use of in vitro diagnostics for the detection and/or diagnosis of the virus that causes COVID-19. This EUA will remain in effect for the duration of the COVID-19 declaration justifying emergency of IVDs, unless it is terminated or revoked by the FDA (after which the test may no longer be used). Performed By: #### C RP #### [facility] [address] [place] [address] [id number] [address] Mitesh Francisco LACTATE/LACTIC ACIDon 2021 Lactate [Moles/Vol] 1.2 mmol/L Normal 0.4-1.9 [facility] Comment on above: Performed By: #### L ACT #### [facility] [address] [address] [address] Mitesh Francisco LIPASEon 10-26-2021 Lipase [Catalytic activity/Vol] 71.0 U/L Critically low 73.0-393.0 [facility] Comment on above: Performed By: #### A MY, CMP, LIPA #### [facility] [address] [address] [address] Mitesh Francisco PROF 14(COMP METB)on 022 Albumin [Mass/Vol] 3.9 g/dL Normal 3.4-5.0 [facility] Comment on above: Performed By: #### A MY, CMP, LIPA #### [facility] [address] [address] [address] Mitesh Francisco Albumin/Globulin [Mass ratio] 1.3 {ratio} Normal [facility] Comment on above: Performed By: #### A MY, CMP, LIPA #### [facility] [address] [place] [address] Dr. Mitesh Francisco ALP [Catalytic activity/Vol] 63 U/L Normal 46-116 [facility] Comment on above: Performed By: #### A MY, CMP, LIPA #### [facility] [address] [place] [address] Dr. Mitesh Francisco ALT [Catalytic activity/Vol] 58 U/L Normal 16-63 [facility] Comment on above: Performed By: #### A MY, CMP, LIPA #### [facility] [address] [place] [address] Dr. Mitesh Francisco Anion gap [Moles/Vol] 10.8 mmol/L Normal [facility] Comment on above: Performed By: #### A MY, CMP, LIPA #### [facility] [address] [place] [address] Dr. Mitesh Francisco AST [Catalytic activity/Vol] 22 U/L Normal 15-37 [facility] Comment on above: Performed By: #### A MY, CMP, LIPA #### [facility] [address] [place] [address] Dr. Mitesh Francisco Bilirubin [Mass/Vol] 0.6 mg/dL Normal 0.2-1.0 [facility] Comment on above: Performed By: #### A MY, CMP, LIPA #### [facility] [address] [address] [address] Mitesh Francisco Calcium [Mass/Vol] 9.0 mg/dL Normal 8.5-10.1 [facility] Comment on above: Performed By: #### A MY, CMP, LIPA #### [facility] [address] [place] [address] Dr. Mitesh Francisco Chloride [Moles/Vol] 104 mmol/L Normal 98-107 [facility] Comment on above: Performed By: #### A MY, CMP, LIPA #### [facility] [address] [place] [address] Dr. Mitesh Francisco CO2 [Moles/Vol] 29.4 mmol/L Normal 21.0-32.0 [facility] Comment on above: Performed By: #### A MY, CMP, LIPA #### [facility] [address] [place] [address] Dr. Mitesh Francisco Creatinine [Mass/Vol] 1.24 mg/dL Normal 0.70-1.30 [facility] Comment on above: Performed By: #### A MY, CMP, LIPA #### [facility] [address] [place] [address] Dr. Mitesh Francisco EGFR-AF CONGOLESE >60 Normal >=60 [facility] Comment on above: Performed By: #### A MY, CMP, LIPA #### [facility] [address] [place] [address] Dr. Mitesh Francisco EGFR-NON AF CONGOLESE 60 mL/min/1.73m2 Normal >=60 [facility] Comment on above: Performed By: #### A MY, CMP, LIPA #### [facility] [address] [place] [address] Dr. Mitesh Francisco Globulin (S) [Mass/Vol] 3.1 g/dL Normal [facility] Comment on above: Performed By: #### A MY, CMP, LIPA #### [facility] [address] [place] [address] Dr. Mitesh Francisco Glucose [Mass/Vol] 128 mg/dL Critically high 74-106 [facility] Comment on above: Performed By: #### A MY, CMP, LIPA #### [facility] [address] [place] [address] Dr. Mitesh Francisco Potassium [Moles/Vol] 4.2 mmol/L Normal 3.5-5.1 [facility] Comment on above: Performed By: #### A MY, CMP, LIPA #### [facility] [address] [place] [address] Dr. Mitesh Francisco Protein [Mass/Vol] 7.0 g/dL Normal 6.4-8.2 [facility] Comment on above: Performed By: #### A MY, CMP, LIPA #### [facility] [address] [place] [address] Dr. Mitesh Francisco Sodium [Moles/Vol] 140 mmol/L Normal 136-145 [facility] Comment on above: Performed By: #### A MY, CMP, LIPA #### [facility] [address] [place] [address] Dr. Mitesh Francisco Urea nitrogen [Mass/Vol] 22.0 mg/dL Critically high 7.0-18.0 [facility] Comment on above: Performed By: #### A MY, CMP, LIPA #### [facility] [address] [place] [address] Dr. Mitesh Francisco Urea nitrogen/Creatinine [Mass ratio] 17.7 mg/mg Normal [facility] Comment on above: Performed By: #### A MY, CMP, LIPA #### [facility] [address] [place] [address] Dr. Mitesh Francisco UA RANDOM W/MICROSCOPICon BACTERIA TRACE Abnormal NONE SEEN [facility] Comment on above: Performed By: #### C RP #### [facility] [address] [place] [address] Dr. Mitesh Francisco Bilirubin Ql (U) SMALL Abnormal NEGATIVE [facility] Comment on above: Performed By: #### C RP #### [facility] [address] [place] [address] Dr. Mitesh Francisco CAST NONE SEEN Normal NONE SEEN [facility] Comment on above: Performed By: #### C RP #### [facility] [address] [place] [address] Dr. Mitesh Francisco Clarity (U) CLEAR Normal CLEAR [facility] Comment on above: Performed By: #### C RP #### [facility] [address] [place] [address] Dr. Mitesh Francisco Color (U) DK. YELLOW Normal YELLOW [facility] Comment on above: Performed By: #### C RP #### [facility] [address] [place] [address] Dr. Mitesh Francisco Crystals LM Nom (Urine sed) NONE SEEN Normal NONE SEEN [facility] Comment on above: Performed By: #### C RP #### [facility] [address] [place] [address] Dr. Mitesh Francisco Epithelial cells LM Ql (Urine sed) FEW Abnormal NONE SEEN /RARE [facility] Comment on above: Performed By: #### C RP #### [facility] [address] [place] [address] Dr. Mitesh Francisco Glucose Ql (U) Negative Normal NEGATIVE [facility] Comment on above: Performed By: #### C RP #### [facility] [address] [place] [address] Dr. Mitesh Francisco Hemoglobin Ql (U) TRACE-INTACT Abnormal NEGATIVE [facility] Comment on above: Performed By: #### C RP #### [facility] [address] [place] [address] Dr. Mitesh Francisco Ketones Ql (U) 40 mg/dl Abnormal NEGATIVE [facility] Comment on above: Performed By: #### C RP #### [facility] [address] [place] [address] Dr. Mitesh Francisco LEUKOCYTES Negative Normal NEGATIVE [facility] Comment on above: Performed By: #### C RP #### [facility] [address] [place] [address] Dr. Mitesh Francisco MUCOUS NONE SEEN Normal NONE SEEN [facility] Comment on above: Performed By: #### C RP #### [facility] [address] [place] [address] Dr. Mitesh Francisco Nitrite Ql (U) Negative Normal NEGATIVE [facility] Comment on above: Performed By: #### C RP #### [facility] [address] [place] [address] Dr. Mitesh Francisco pH (U) 6.0 [pH] Normal 5-9 [facility] Comment on above: Performed By: #### C RP #### [facility] [address] [place] [address] Dr. Mitesh Francisco RBC 0-2 Normal 0-2 [facility] Comment on above: Performed By: #### C RP #### [facility] [address] [place] [address] Dr. Mitesh Francisco SPEC GRAVITY >=1.030 Abnormal 1.005-<=1.025 [facility] Comment on above: Performed By: #### C RP #### [facility] [address] [place] [address] Dr. Mitesh Francisco UA PROTEIN TRACE Normal NEGATIVE/ TRACE [facility] Comment on above: Performed By: #### C RP #### [facility] [address] [place] [address] Dr. Mitesh Francisco Urobilinogen Qn (U) 0.2 {Alla'U}/dL Normal 0.2 - 1. 0 [facility] Comment on above: Performed By: #### C RP #### [facility] [address] [place] [address] Dr. Mitesh Francisco WBC 2-5 Abnormal NONE SEEN [facility] Comment on above: Performed By: #### C RP #### [facility] [address] [place] [address] Dr. Mitesh Francisco XR ABD FLAT UP_PA Brenda 10-26 XR ABD FLAT UP_PA CH EXAM: XR ABD FLAT UP_PA CH HISTORY: CONSTIPATION, UNSPECIFIED [abdominal pain. COMPARISON: None. TECHNIQUE: Single frontal view of the chest as well as supine and upright views of the abdomen are obtained. FINDINGS: The cardiomediastinal silhouette is nonenlarged. Pulmonary vascular markings are within normal limits. There is no focal airspace consolidation. The costophrenic angles are clear. No pneumothorax. No free air under the diaphragm. Minimal air-fluid leveling's in the right abdomen are present. There are no abnormally dilated loops of small or large bowel. No suspicious calcifications or evidence of visceromegaly. The osseous structures appear grossly intact. IMPRESSION: 1. No acute cardiopulmonary process identified. 2. Minimal air-fluid leveling on the right abdomen suggest possible ileus. No obstruction. Electronically authenticated by: MARIANO KOCH Date: 2021-10-26 03:41 Normal [facility] MRI KNEE RT WO CONon 022 MRI KNEE RT WO CON EXAMINATION: MRI KNE E RT WO CON HISTORY: Sprain of medial collateral ligament of knee COMPARISON: No relevant comparison available. TECHNIQUE: A complete multi-planar MRI was performed. FINDINGS: MEDIAL COMPARTMENT MEDIAL MENISCUS: Oblique tear extending into the inferior surface of the posterior horn. CARTILAGE: No visible defect. BONES: No marrow pathology, fracture, or significant arthropathy. MCL AND MEDIAL CAPSULE: Grade I sprain of the medial collateral ligament. LATERAL COMPARTMENT LATERAL MENISCUS: No visible tear or significant degeneration. CARTILAGE: No visible defect. BONES: No marrow pathology, fracture, or significant arthropathy. LCL/POSTEROLAT COMPLEX: Normal lateral collateral ligament, fascicles, lateral capsule and ligaments. ANTERIOR COMPARTMENT PATELLA: No marrow pathology, fracture, or significant arthropathy. CARTILAGE: No visible defect. TENDONS: Normal. EFFUSION: None. No synovitis or loose bodies. ACL: Normal appearing ligament. PCL: Normal appearing ligament. MENISCOFEMORAL: Normal meniscofemoral ligaments. OTHER: Negative. IMPRESSION: 1. Medial meniscus posterior horn mild undersurface tear. 2. Mild strain of medial collateral ligament. Electronically authenticated by: SILVANA LAKE Date: 2021-09-21 11:00 Normal [facility] XR FOREIGN BODY EYEon 2021 XR FOREIGN BODY EYE EXAMINATION: XR FORE IGN BODY EYE HISTORY: Foreign body in eye COMPARISON: No relevant comparison available. FINDINGS: ORBITS: Negative for a metallic foreign body. OTHER: Negative. IMPRESSION: 1. No metallic foreign body within the orbits. Electronically authenticated by: SILVANA [place]KE Date: 2021-09-21 09:38 Normal [facility] Covid-19 PCR (CVDTBH)on 04-14 SARS-CoV-2 (COVID-19) RNA MIGUEL+probe Ql (Unsp spec) Not detected Normal NOT DETECTED [facility] Comment on above: Result Comment: This test is not yet approved or cleared by the [place] FDA. When there are no FDA-approved or cleared tests available, and other criteria are met, FDA can make tests available under an emergency access mechanism called an Emergency Use Authorization (EUA). The EUA for this test is supported by the Spouter of Health and Human Service's (HHS's) declaration that circumstances exist to justify the emergency use of in vitro diagnostics for the detection and/or diagnosis of the virus that causes COVID-19. This EUA will remain in effect (meaning this test can be used) for the duration of the COVID-19 declaration justifying emergency of IVDs, unless it is terminated or revoked by FDA (after which the test may no longer be used). When diagnostic testing is negative, the possibility of a false negative should be considered in the context of a patient's recent exposures and the presence of clinical signs and symptoms consistent with SARS-CoV-2. Performed By: #### C RP #### [facility] [address] [place] [address] Dr. Mitesh Francisco Lab Reportson 05-19-2020 Lab Reports [id number] D:127 Normal [facility] Ambulatory Clinical Summaryo n 04-26-2020 Ambulatory Clinical Summary {[id number]}CD:[id number] Normal [facility] Ambulatory Clinical Summary {[id number]}CD:[id number] Normal [facility] Patient Educationon 04-26-20 20 Patient Education Family Medicine Benign Prostatic Hypertrophy The prostate gland is part of the reproductive system of men. A normal prostate is about the size and shape of a walnut. The prostate gland makes a fluid that is mixed with sperm to make semen. This gland surrounds the urethra and is located in front of the rectum and just below the bladder. The bladder is where urine is stored. The urethra is the tube through which urine passes from the bladder to get out of the body. The prostate grows as a man ages. An enlarged prostate not caused by cancer is called benign prostatic hypertrophy (BPH). This is a common health problem in men over age 50. This condition is a normal part of aging. An enlarged prostate presses on the urethra. This makes it harder to pass urine. In the early stages of enlargement, the bladder can get by with a narrowed urethra by forcing the urine through. If the problem gets worse, medical or surgical treatment may be required. This condition should be followed by your caregiver. Longstanding back pressure on the kidneys can cause infection. Back pressure and infection can progress to bladder damage and kidney (renal ) failure. If needed, your caregiver may refer you to a specialist in kidney and prostate disease (urologist ). CAUSES The exact cause is not known. SYMPTOMS ? You are not able to completely empty your bladder. ? Getting up often during the night to urinate. ? Need to urinate frequently during the day. ? Difficultly in starting urine flow. ? Decrease in size and strength of the urine stream. ? Dribbling after urination. ? Pain on urination (more common with infection). ? Inability to pass your water. This needs immediate treatment. DIAGNOSIS These tests will help your caregiver understand your problem: ? Digital rectal exam (CURT). In a rectal exam, your caregiver checks your prostate by putting a gloved, lubricated finger into the rectum to feel the back of your prostate gland. This exam detects the size of the gland and abnormal lumps or growths. ? Urinalysis (exam of the urine). This may include a culture if there is concern about infection. ? Prostate Specific Antigen (PSA). This is a blood test used to screen for prostate cancer. It is not used alone for diagnosing prostate cancer. ? Rectal ultrasound (sonogram). This test uses sound waves to electronically produce a picture of the prostate. It helps examine the prostate gland for cancer. TREATMENT Mild symptoms may not need treatment. Simple observation and yearly exams may be all that is required. Medications and surgery are options for more severe problems. Your caregiver can help you make an informed decision for what is best. Two classes of medications are available for relief of prostate symptoms: ? Medications that shrink the prostate. This helps relieve symptoms. ? Uncommon side effects include problems with sexual function. ? Medications to relax the muscle of the prostate. This also relieves the obstruction. ? Side effects can include dizziness, fatigue, lightheadedness, and retrograde ejaculation (diminished volume of ejaculate). Several types of surgical treatments are available for relief of prostate symptoms: ? Transurethral resection of the prostate (TURP). In this treatment, an instrument is inserted through opening at the tip of the penis. It is used to cut away pieces of the inner core of the prostate. The pieces are removed through the same opening of the penis. This removes the obstruction and helps get rid of the symptoms. ? Transurethral incision (TUIP). In this procedure, small cuts are made in the prostate. This lessens the prostates pressure on the urethra. ? Transurethral microwave thermotherapy (TUMT). This procedure uses microwaves to create heat. The heat destroys and removes a small amount of prostate tissue. ? Transurethral needle ablation (TUNA). This is a procedure that uses radio frequencies to do the same as TUMT. ? Interstitial laser coagulation (ILC). This is a procedure that uses a laser to do the same as TUMT and TUNA. ? Transurethral electrovaporization (TUVP). This is a procedure that uses electrodes to do the same as the procedures listed above. Regardless of the method of treatment chosen, you and your caregiver will discuss the options. With this knowledge, you along with your caregiver can decide upon the best treatment for you. SEEK MEDICAL CARE IF: ? You develop chills, fever of 100.5? F (38.1? C), or night sweats. ? There is unexplained back pain. ? Symptoms are not helped by medications prescribed. ? You develop medication side effects. ? Your urine becomes very dark or has a bad smell. SEEK IMMEDIATE MEDICAL CARE IF: ? You are suddenly unable to urinate. This is an emergency. You should be seen immediately. ? There are large amounts of blood or clots in the urine. ? Your urinary problems become unmanageable. ? You develop lightheadedness, severe dizziness, or you feel faint. ? You develop moderate to severe low back or flank pain. ? You develop chills or fever. Document Released: 04/29/2006 Document Revised: 07/21/2012 Document Reviewed: 01/19/2008 ExitCare? Patient Information ?2013 [employer]. [place] [facility] Urology Office/Clinic Noteon 04-26-2020 Urology Office/Clinic Note Chief Complaint 1 year f/u with PSA This patient is a 54-year-old gentleman with a history of prostatic hyperplasia and elevated PSA blood test result. He had a prostate biopsy in February 2018 that was negative. He gets yearly PSA blood test result and is here today to review his most recent test. [facility] Staff Pt is here for 1 year with PSA. Previous dx of BPH, nocturia, elevated PSA and hematuria. Current PSA done 04/22/2020 is 2.60. Pt refuses to give a urine sample today. Dysuria: no Incomplete bladder emptying: no Hematuria: no Frequency: no Urgency: no Nocturia: 1x Stream: pt states it depends on how long he holds his urine Leaking: no Post void dripping: no Wearing pads/ Depends: no Urge incontinence: no Stress incontinence: no Incontinence without Sensory Awareness: no Abdominal pain: no Flank pain: no Sexual complaints: no History of Present Illness Reviewed UA and PSA. There have been no associated fever, chills, flank pain or blood in the urine. Pt. denies any pain/burning with urination at this time. Review of Systems PHQ Score Initial Depression Screen Score: 0 ROS - Provider Constitutional: denies weight loss, denies hot flashes. Eyes: denies eye problems. Gastrointestinal: denies nausea, denies vomiting. Cardiovascular: denies chest pain or angina. Integumentary: no dryness Musculoskeletal: denies musculoskeletal symptoms. ENMT: denies otolaryngeal symptoms. Respiratory: no shortness of breath. Heme/Lymph: denies easy bleeding tendency, denies easy bruising tendency. Psychiatric: no confusion, no anxiety. Genitourinary: denies dysuria, denies hematuria, denies discharge, denies urinary frequency, denies urinary hesitancy, denies nocturia, denies incontinence, denies genital sores, denies decreased libido, and denies erectile dysfunction. Physical Exam Vitals & Measurements HR: 73(Peripheral) RR: 16 BP: 151/104 HT: 177.8 cm HT: 177.8 cm WT: 110 kg WT: 110.0 kg BMI: 34.8 General Appearance: alert, no distress, well nourished, well developed male. Genitourinary: normal scrotum, normal testes, normal urethra, normal epididymis, normal vas deferens/spermatic cord. Flank Pain: none. Bladder: nonpalpable. Prostate: normal prostate, estimated weight 40 gms, no hard nodule observed. Assessment/Plan The patient has a history of an elevated PSA but at this point has a PSA of 2.6 ng/mL which is in the expected range for patient of his age. Rectal examination was benign. Our plan will be to see him back in the office in 1 year with another PSA blood test. States he is voiding without much difficulty but he still has some nocturia. His symptoms are not bad enough that require medication management. 1. BPH associated with nocturia (N40.1: Benign prostatic hyperplasia with lower urinary tract symptoms) Pt. is not on any BPH meds. at this time and is doing well overall w/ his urination w/ no bothersome symptoms. Current PSA drawn on 04/22/2020 w/ a level of 2.60 compared to 2.83 drawn in 04/2019. CURT today - 40gms, no hard nodules. Pt. is doing well. All questions/concerns were discussed. Pt. to call the office if heencounters any issues prior. Pt. acknowledges understanding. F/u in 1yr. w/ PSA. 2. Nocturia (R35.1: Nocturia) 1-2x/night. I have reviewed the previous health record information and history for this pt. from Dr. Gallardo. Follow-up With When Contact Information Sami Daniels MD, Nate Bailey [address] [place], [place] [id number]- Additional Instructions: 1yr. w/ PSA. Patient Education Benign Prostatic Hypertrophy ISabrina , personally scribed for Dr. Gallardo on 04/26/2020 09:04:22. . Documentation recorded by the scribe, Sabrina Galindo, accurately reflects the services(s) I performed and decisions made by me. Authenticated by Dr. Gallardo on 04/26/2020 09:09:26. Problem List/Past Medical History Ongoing BPH associated with nocturia Elevated PSA Hematuria Nocturia Historical Hyperlipidemia Procedure/Surgical History Transrectal biopsy of prostate using ultrasound (US) guidance (03/12/2018), Colonoscopy, hernia repair. Medications lovastatin, 10 mg, Oral, Daily Zetia, 10 mg, Oral, Daily Allergies No Known Allergies Social History Alcohol - Low Risk, 04/21/2019 Current, Wine, 1-2 times per week, 04/21/2019 Substance Abuse - Denies Substance Abuse, 04/21/2019 Tobacco - Denies Tobacco Use, 04/21/2019 Never (less than 100 in lifetime) Tobacco Use:., 04/21/2019 Family History Diabetes mellitus type 2: Mother and Father. Lab Results Test Name Test Result Date/Time PSA, External 2.60 ng/mL 04/22/2020 08:22 EST PSA, External 2.83 ng/mL 04/15/2019 08:42 EST Diagnostic Results PSA blood test results have been reviewed and are as listed. Normal [facility] Comment on above: Result Comment: Elec tronically Signed By: Sami Daniels MD, Nate Bailey\.br\Date and Time Signed: 04/26/20 09:09 EST\.br\Electronically Co-Signed By: Sabrina Galindo MA\.br\Date and Time Co-Signed: 04/26/20 09:04 EST Encounters Encounter Date Encounter Type Care Provider Facility Start: 03-06-2022 Encounter for genera l adult medical examination without abnormal findings DR RONNIE MANTILLA [facility] Start: 03-02-2022 End: 03-02-[address] RONNIE MANTILLA Facility:[facility] Start: 03-02-2022 End: 03-02-2022 Encounter for general adult medical examination without abnormal findings DR RONNIE MANTILLA Facility:[facility] Start: 02-27-2022 End: 02-28-[address] RONNIE MANTILLA Facility:[facility] Start: 10-26-2021 End: 10-27-[address] TONO GALLARDO Facility:[facility] Start: 09-21-2021 End: 09-22-[address] RONNIE MANTILLA Facility:[facility] Start: 09-19-2021 End: 10-11-[address] RONNIE MANTILLA Facility:[facility] Start: 05-11-2021 End: 05-11-[address] RONNIE MANTILLA Facility:[facility] Start: 03-14-2021 End: 03-15-2021 ambulatory MAGGIE HUERTA Facility:[facility] Procedures Date Procedure Procedure Detail Performing Clinician Start: 02-27-[address] RENEE MANTILLA Comment on above: Performed By: #### [facility] #### [facility] [address] [place] [address] Dr. Mitesh Francisco Payers Date Payer Category Payer Unknown [id number] 1965 Unknown [id number] 2.16.84 [id number] 1965 Unknown [id number] 2.16.84 [id number] 1965 Unknown [id number] 2.16.84 [id number] 1965 Unknown [id number] 2.16.84 [id number] 1964 Unknown [id number] 2.16.84 [id number] 1965 Unknown [id number] 2.16.84 [id number] 1959 Private Health Insurance [id number] 1959 Private Health Insurance [id number] 1960 Self-pay Unknown [id number] 2.16.84 [id number] History and physical note 12-19-2021 Note Date & Type Note Facility 12-19-2021 Note [id number] Medication management note 12-19-2021 Note Date & Type Note Facility 12-19-2021 Note [id number] [facility] Clinical Note 12-18-2021 Note Date & Type Note Facility 12-18-2021 Note [facility] SURGERY Clinical Discharge Summary PERSON INFORMATION Name LESLIE COLLINS Age 56 Years 1965 Sex MALE Language Andorran PCP RONNIE MANTILLA Marital Status [facility] Service Ambulatory Surgery Acct# Arrival 12/18/2021 12:18:00 Visit Reason SURGERY - RIGHT KNEE SCOPE Acuity LOS 019 03:44 Address: [address] [place] [address] [phone] Comment: PROVIDER INFORMATION VITALS INFORMATION Vital Sign Triage Latest Temp Oral Temp Temporal Temp Intravascular Temp Axillary Temp Rectal 02 Sat 97 % 95 % Respiratory Rate Peripheral Pulse Rate Apical Heart Rate Blood Pressure / 87 mmHg / 105 mmHg Comment: MEDICAL INFORMATION Allergy Info: No Known Medication Allergies Prescriptions Given: ascorbic acid/chondroitin/glucosa/rudolph (Glucosamine Chondroitin oral capsule) 1 tab(s) Oral every day. diclofenac (diclofenac sodium 75 mg oral delayed release tablet) 1 tab(s) Oral 2 times a day. ezetimibe (Zetia 10 mg oral tablet) 1 tab(s) Oral every day. lovastatin (lovastatin 10 mg oral tablet) 1 tab(s) Oral every day. Medication List: Medications to Continue That Have Not Changed Other Medications ascorbic acid/chondroitin/glucosa/rudolph (Glucosamine Chondroitin oral capsule) 1 tab(s) Oral every day. diclofenac (diclofenac sodium 75 mg oral delayed release tablet) 1 tab(s) Oral 2 times a day. ezetimibe (Zetia 10 mg oral tablet) 1 tab(s) Oral every day. lovastatin (lovastatin 10 mg oral tablet) 1 tab(s) Oral every day. Medications to Continue That Have Not Changed Other Medications ascorbic acid/chondroitin/glucosa/rudolph (Glucosamine Chondroitin oral capsule) 1 tab(s) Oral every day. diclofenac (diclofenac sodium 75 mg oral delayed release tablet) 1 tab(s) Oral 2 times a day. ezetimibe (Zetia 10 mg oral tablet) 1 tab(s) Oral every day. lovastatin (lovastatin 10 mg oral tablet) 1 tab(s) Oral every day. Medications to Continue That Have Not Changed Other Medications ascorbic acid/chondroitin/glucosa/rudolph (Glucosamine Chondroitin oral capsule) 1 tab(s) Oral every day. diclofenac (diclofenac sodium 75 mg oral delayed release tablet) 1 tab(s) Oral 2 times a day. ezetimibe (Zetia 10 mg oral tablet) 1 tab(s) Oral every day. lovastatin (lovastatin 10 mg oral tablet) 1 tab(s) Oral every day. Comment: Lab and Radiology Results Laboratory or Other Results This Visit (last charted value for your 12/18/2021 visit) No Laboratory or Other Results This Visit DIET & ACTIVITY Patient Activity Level: Patient Diet: Patient Activity Restrictions: DISCHARGE INFORMATION Discharge Disposition: Discharge Location: DEPART REASON INCOMPLETE INFORMATION PATIENT EDUCATION INFORMATION Instructions: Dominick- Post Op Knee Arthroscopy (MHBRETTUDFRANCINE) Follow up: With: Address: When: ELIZABETH DURAN [address], [address] [place] [address] Business (1) 12/27/2021 8:30 AM With: Address: When: RONNIE MANTILLA [address] [facility], [facility] [place] [address] Business (1) DIAGNOSIS Tear of meniscus of right knee as current injury Comment: PHYS DOC NOTES [facility] Summary Purpose Family History No Family History Records FoundNo Family History Records FoundNo Family History Records Found Advance Directives No Advanced Directives Records FoundNo Advanced Directives Records FoundNo Advanced Directives Records Found Additional Source Comments (unrecognized sect ion and content) No Status Records FoundNo Status Records FoundNo Status Records Found INFORMATION SOURCE (unrecogn ized section and content) DATE CREATED AUTHOR 05/19/2020 [facility] DATE CREATED AUTHOR AUTHOR'S ORGANIZ ATION 12/22/2021 [facility] DATE CREATED AUTHOR AUTHOR'S ORGANIZ ATION 03/07/2022 [facility] FOR RECORDS PERTAINING TO PATIENTS WHO ARE OR HAVE BEEN ENROLLED IN A CHEMICAL DEPENDENCY/SUBSTANCEABUSE PROGRAM, SOME INFORMATION MAY BE OMITTED. This clinical summary was aggregated from multiple sources. Caution should be exercised in using it in the provision of clinical care. This summary normalizes information from multiple sources, and as a consequence, information in this document may materially change the coding, format and clinical context of patient data. In addition, data may be omitted in some cases. CLINICAL DECISIONS SHOULD BE BASED ON THE PRIMARY CLINICAL RECORDS. [facility] [employer] [facility] provides no warranty or guarantee of the accuracy or completeness of information in this document.
--- NOTE | 2024-09-28 14:33 | PM.STRESS ---
Stress Test Stress Test Allergies Allergy/AdvReac Type Severity Reaction Status Date / Time No Known Drug Allergies Allergy Verified 10/19/22 19:07 Requesting physician: Al Osman Procedure: This was a Treadmill stress test performed at the [facility] on 09/28/2024. The patient was attached to electrocardiographic monitoring. Baseline vital signs and ECG were obtained. The patient exercised on the treadmill according to the Tray protocol. The patient is in sinus for 8 minutes and 4 seconds, reached stage III of the Tray protocol and achieved 10.1 METS. Resting heart rate was 58 bpm and peak heart rate was 141 bpm representing 88% of maximum predicted heart rate. Resting blood pressure was 128/80 and peak blood pressure was 140/90. The test was stopped due to target heart rate being achieved. General Information: Reason for Stress Test: Chest pain Cardiac History and Risk Factors: Hypertension, diabetes Resting 12 - Lead Electrocardiogram: Normal sinus rhythm, T wave inversions noted in lead III and aVF. Stress Test: Protocol: Tray protocol. Exercise Capacity: Good. Blood Pressure Response: Resting elevated blood pressure. Normal blood pressure response to exercise. Rhythm: Sinus rhythm with occasional PVCs. ST - Response: No ischemic ST changes. Patient Response: No chest pain. Interpretation: 1. No evidence of ischemic ECG changes seen during treadmill exercise stress test. 2. Luu treadmill score of +8 is associated with low risk of long-term cardiac events.
== END 2024-09-28 10:09 | disposition home or self-care (01) ==
LOC: CARD 10:08
PROVIDERS: PCP Family Medicine; Visit Provider Family Medicine
DX: R07.9 Chest pain, unspecified (principal); I10 Essential (primary) hypertension
CPT/HCPCS: 93017

== ENCOUNTER 2025-02-10 09:21 | Outpatient (OUT) | payer OTHER, SELFPAY | END 2025-02-10 09:22 | disposition home or self-care (01) | LOC: SLEEP 09:22 | PROVIDERS: PCP Family Medicine; Visit Provider Psychiatry & Neurology Neurology | DX: G47.33 Obstructive sleep apnea (adult) (pediatric) (principal) ==